=== PATIENT | male | born 1955 | race Caucasian/White ===

== ENCOUNTER 2019-05-03 21:24 | Inpatient (IN) ==
[2019-05-03] MEDS ORDERED: Morphine Sulfate 2 MG/ML SYRINGE IVP ONE (21:46)
[2019-05-03 22:00] LABS: Bilirubin,Urine Negative (Negative); Blood,Urine Negative (Negative); Clarity,Urine Clear (Clear); Color,Urine Yellow (Yellow); Glucose,Urine (UA) Normal (Normal); Ketones,Urine 40 mg/dL (Negative); Leukocyte Esterase,Urine Negative (Negative); Nitrite,Urine Negative (Negative); PH,Urine 5.5 pH Units (5.0-8.0); Protein,Urine 30 mg/dL (Neg-Trace); Specific Gravity,Urine >= 1.030 (1.010-1.025); Urobilinogen,Urine Normal (Normal)
[2019-05-03 22:06] LABS: Bacteria,Urine None Seen per hpf (None-Few); Hyaline Casts,Urine None Seen per lpf (None-Few); Squamous Epithelial Cell,Urine Many per lpf (None-Few); WBC,Urine 0-3 per hpf (0-3)
[2019-05-03 22:10] LABS: Basophils # 0.1 K/mcL (0.0-0.2); Basophils % 0.6 %; Eosinophils % 0.1 %; Hematocrit 33.2 % (37.5-50.1); Hemoglobin 11.6 g/dL (12.9-16.9); Immature Granulocytes % 0.3 % (0-4); Lymphocytes % 8.3 %; Mean Corpuscular HGB Conc 34.9 g/dL (31.6-35.5); Mean Corpuscular Hemoglobin 33.3 pg (28.0-33.3); Mean Corpuscular Volume 95.4 fL (83.0-100.0); Mean Platelet Volume 10.9 fL (9.4-12.4); Monocytes # 1.1 K/mcL (0.0-1.3); Monocytes % 8.7 %; Platelet Count 127 K/mcL (140-400); Red Blood Count 3.48 M/mcL (4.19-5.50); Red Cell Distribution Width 12.2 % (11.5-14.5); White Blood Count 12.2 K/mcL (4.3-11.1)
[2019-05-03 22:25] LABS: Alanine Aminotransferase 11 Units/L (7-52); Albumin 4.2 g/dL (3.5-5.7); Albumin/Globulin Ratio 1.8 (1.1-2.2); Alkaline Phosphatase 109 Units/L (34-104); Aspartate Amino Transferase 24 Units/L (13-39); BUN/Creatinine Ratio 25 (6-26); Bilirubin,Total 0.8 mg/dL (0.3-1.0); Blood Urea Nitrogen 15 mg/dL (8-23); Calcium 9.4 mg/dL (8.6-10.3); Carbon Dioxide 20 mEq/L (23-29); Chloride 88 mEq/L (98-107); Creatine Kinase 606 Units/L (30-223); Globulin 2.4 g/dL (2.4-3.5); Glucose 64 mg/dL (70-105); Osmolality,Calculated 259 (280-300); Potassium 4.7 mEq/L (3.5-5.1); Sodium 125 mEq/L (136-145); Total Protein 6.6 g/dL (6.4-8.9); eGFR For African Americans > 60 (> 60); eGFR For Non-African Americans > 60 (> 60)
[2019-05-03 22:31] LABS: Platelet Estimate Slight Decrease (Normal)
[2019-05-03] MEDS ORDERED: *HR* HYDROmorphone (PF) 1 MG/ML SYRINGE IVP ONE (23:14)
[2019-05-03] MEDS ORDERED: 0.9 % Sodium Chloride 1,000 ML IVC ONE (23:26)
--- NOTE | 2019-05-03 23:28 | Emergency Department Note ---
Disposition Clinical Impression: Fracture, intertrochanteric, right femur Disposition: Admitted As Inpatient Condition: Fair [facility] Care Provider[facility] - Time of Disposition: 23:30 General Adult HPI - General Chief complaint: ED Fall Stated complaint: ft leg, fall Time Seen by Provider: 05/03/19 21:28 - History of Present Illness HPI Narrative: Patient 63-year-old gentleman who presents to emergency department with chief complaint of right hip pain. Patient states that around 2:00 in the afternoon he fell when his right lower extremity gave out on him. The patient states that he did not strike his head and all his consciousness did not have neck pain afterwards. The patient states he laid on the floor until finally he was able to get assistance summoned. Patient states that he has pain whenever he attempts to move his right lower extremity particularly in the right hip. The patient states pain is worse with movement and improves with rest Pain Scale: 8 - Related Data Allergies Allergy/AdvReac Type Severity Reaction Status Date / Time No Known Allergies Allergy Verified 06/12/17 12:32 All systems ED: reviewed and negative except as stated. Past Medical History - Past Medical History Attestation: Yes The following information was validated with the patient. Medical history: Reports: COPD, hyperlipidemia, seizures, other Psychiatric history: Reports: no psych history - Social History Smoking Status: Current every day smoker Alcohol use: Reports: rarely Drug use: Reports: none Physical Exam General: Conversant and pleasant interactive and nontoxic. Head: Normocephalic/atraumatic Eyes:PERRLA, EOMI, no conjunctivitis Nares: Without d/c. Ears: No erythema or d/c noted. Oralpharnyx: P&MMM noted, Neck: Supple, no JVD or INSULATION MECHANIC noted. Cardovascular: regular rate and rhythm without murmur, brisk capillary refill, no peripheral edema. Lungs: Clear to ascultation bilaterally, non-labored Abd: Soft nontender, Non Distended, no guarding, no rebound. : Defered Extremities: He has pain in the right hip tender to palpation the patient has pain with any range of motion there is no lacerations present Neuro: AOx3, no obvious gross neuro deficit Psych: Normal Affect Derm: No rash noted - General General appearance: alert, in no apparent distress Course Course Narrative: Placement pain plain film x-rays obtained of the right hip that showed evidence of a fracture. The case was discussed with with Orthopedics the paten will be admitted to the hospitalist service will be Vital Signs Temperature 98.0 F 05/03/19 21:27 Pulse Rate 97 05/03/19 21:27 Respiratory Rate 17 05/03/19 21:27 Blood Pressure 134/73 05/03/19 21:27 O2 Sat by Pulse Oximetry 100 05/03/19 21:27 Temperature 98.0 F 05/03/19 21:27 Pulse Rate 97 05/03/19 21:27 Respiratory Rate 17 05/03/19 21:27 Blood Pressure 134/73 05/03/19 21:27 O2 Sat by Pulse Oximetry 100 05/03/19 21:38 Oxygen Delivery Oxygen Delivery Room Air Medical Decision Making - Lab Data Result diagrams: 05/03/19 21:46 05/03/19 21:46 Lab Results 05/03/19 05/03/19 05/03/19 Range/Units 21:46 21:46 21:53 WBC 12.2 H (4.3-11.1) K/mcL RBC 3.48 L (4.19-5.50) M/mcL Hgb 11.6 L (12.9-16.9) g/dL Hct 33.2 L (37.5-50.1) % MCV 95.4 (83.0-100.0) fL MCH 33.3 (28.0-33.3) pg MCHC 34.9 (31.6-35.5) g/dL RDW 12.2 (11.5-14.5) % Plt Count 127 L (140-400) K/mcL MPV 10.9 (9.4-12.4) fL Immature Gran % 0.3 (0-4) % Seg Neutrophils % 82.0 % Lymphocytes % 8.3 % Monocytes % 8.7 % Eosinophils % 0.1 % Basophils % 0.6 % Neutrophils # 10.0 H (1.6-8.9) K/mcL Lymphocytes # 1.0 (0.6-4.6) K/mcL Monocytes # 1.1 (0.0-1.3) K/mcL Eosinophils # 0.0 (0.0-0.6) K/mcL Basophils # 0.1 (0.0-0.2) K/mcL Platelet Estimate Slight Decrease L (Normal) Sodium 125 L (136-145) mEq/L Potassium 4.7 (3.5-5.1) mEq/L Chloride 88 L (98-107) mEq/L Carbon Dioxide 20 L (23-29) mEq/L BUN 15 (8-23) mg/dL Creatinine 0.59 L (0.70-1.30) mg/dL Est GFR ( Amer) > 60 (> 60) Est GFR (Non-Af Amer) > 60 (> 60) BUN/Creatinine Ratio 25 (6-26) Glucose 64 L (70-105) mg/dL Calculated Osmolality 259 L (280-300) Calcium 9.4 (8.6-10.3) mg/dL Total Bilirubin 0.8 (0.3-1.0) mg/dL AST 24 (13-39) Units/L ALT 11 (7-52) Units/L Alkaline Phosphatase 109 H (34-104) Units/L Creatine Kinase 606 H (30-223) Units/L Serum Total Protein 6.6 (6.4-8.9) g/dL Albumin 4.2 (3.5-5.7) g/dL Globulin 2.4 (2.4-3.5) g/dL Albumin/Globulin Ratio 1.8 (1.1-2.2) Urine Color Yellow (Yellow) Urine Clarity Clear (Clear) Urine pH 5.5 (5.0-8.0) pH Units Ur Specific [place] >= 1.030 H (1.010-1.025) Urine Protein 30 H (Neg-Trace) mg/dL Urine Glucose (UA) Normal (Normal) mg/dL Urine Ketones 40 H (Negative) mg/dL Urine Blood Negative (Negative) Urine Nitrite Negative (Negative) Urine Bilirubin Negative (Negative) Urine Urobilinogen Normal (Normal) mg/dL Ur Leukocyte Esterase Negative (Negative) Urine Microscopic RBC 5-15 H (0-3) per hpf Urine Microscopic WBC 0-3 (0-3) per hpf Ur Squamous Epith Cells Many H (None-Few) per lpf Urine Bacteria None Seen (None-Few) per hpf Hyaline Casts None Seen (None-Few) per lpf Ur Culture Indicated? NO (NO)
[2019-05-03] MEDS ORDERED: D5% in 0.45% NACL 1,000 ML IVC SCH (23:45)
--- NOTE | 2019-05-03 23:56 | Internal Med History&Physical ---
Date of Encounter: 05/03/19 Time of Encounter: 23:55 Internal Medicine - H&P: HPI Chief complaint: Fall/Hip Fx History of present illness: Mr. Reis is a 63 year old male with a past medical history of non-O2 dependent COPD, hypertension, seizure disorder who presented to the ED due to complaints of right hip pain in the setting of a reported mechanical fall earlier today around 2 PM this afternoon when the patient stated that his right lower extremity gave out. Patient is not currently on any blood thinners and denies any loss of consciousness or head trauma. Patient was on the floor for until he was finally able to get assistance. Since then his reported increased pain with movement of his right lower extremity. Imaging of the right hip revealed a comminuted intertrochanteric fracture. Vitals on arrival otherwise were stable. Laboratory workup notable for a mild leukocytosis of 12.2, anemia of 11.6, hyponatremia with a sodium of 125, elevated creatinine kinase of over 600 and mild hypoglycemia with a blood glucose of 64. Patient denies any dif ficulty breathing, fever, chills, chest pain, shortness of breath, recent seizures, lower extremity swelling or GI symptoms. Case discussed with Dr. Aburto who will evaluate the patient in the morning. Past Med Surg Social Fam HX - Past Medical History Medical history: COPD, hyperlipidemia, seizures, other Additional medical history: natalia's Psychiatric history: no psych history - Past Surgical History Additional surgical history: cystectomy from neck, diverticulitis - Social History Smoking Status: Current every day smoker Alcohol use: rarely Drug use: none Internal Medicine - H&P: Meds Budesonide/Formoterol 160/4.5 [Symbicort 160/4.5] 2 puff IH BIDR 05/04/19 [History] Cholecalciferol (D-3) [Vitamin D] 2,000 unit PO DAILY 05/04/19 [History] Ipratropium/Albuterol Sulfate [Combivent Respimat Inhal [place]] 1 puff IH QID PRN 05/04/19 [History] Loratadine [Claritin] 10 mg PO DAILY 05/04/19 [History] Phenytoin ER [Dilantin ER] 200 mg PO HS 05/04/19 [History] Phenytoin ER [Dilantin ER] 300 mg PO QAM 05/04/19 [History] amLODIPine [Norvasc] 5 mg PO DAILY 05/04/19 [History] Allergy/AdvReac Type Severity Reaction Status Date / Time No Known Allergies Allergy Verified 06/12/17 12:32 All Systems PM: A 10-system review of systems was performed and is negative for pertinent findings except as documented above in the HPI. - Constitutional Constitutional: no chills, no fever(s), no night sweats - EENT Eyes: no change in vision, no discharge, no pain, no photophobia Ears: no ear discharge, no ear pain, no tinnitus Nose, mouth and throat: no dysphagia, no nasal discharge, no neck pain, no sore throat - Cardiovascular Cardiovascular ROS IM: no chest pain, no diaphoresis, no dyspnea, no lightheadedness, no palpitations, no syncope - Respiratory Respiratory: no cough, no dyspnea, no wheezing, no excessive phlegm production - Gastrointestinal Gastrointestinal: no abdominal pain, no diarrhea, no hematemesis, no hematochezia, no melena, no nausea, no vomiting - Musculoskeletal Musculoskeletal ROS IM: no numbness, no tingling - Integumentary Integumentary IM: no rash, no unusual bruising - Neurological Neurological ROS: no confusion, no convulsions, no focal weakness, no numbness, no tingling, no tremor(s) - Hematologic/Lymphatic Hematologic/Lymphatic: no easy bruising - Constitutional Vitals: Temp Pulse Resp BP Pulse Ox 98.0 F 97 17 134/73 100 05/03/19 21:27 05/03/19 21:27 05/03/19 21:27 05/03/19 21:05/03/19 21:38 Exam: General: Alert and oriented Skin:Normal color, no rash, no lesions. HEENT:EOM, pupils equal, round and reactive. Cardiovascular:Normal S1 & S2, no rubs, murmurs or gallops. No JVD. Pulse regular. Lungs:Normal breath sounds, no wheezes or crackles. Abdomen:Soft, non-tender, no rigidity. Extremities:No deformity, no edema or tenderness, no joint swelling or clubbing. Neurological:Normal cognition and motor skills. Pulses:Carotid and radial pulses normal +2. Rest of the physical exam is non contributory Internal Med - H&P Results - Labs CBC & Chem 7: 05/04/19 02:27 05/04/19 02:27 Labs: Short CBC 05/03/19 Range/Units 21:46 WBC 12.2 H (4.3-11.1) K/mcL Hgb 11.6 L (12.9-16.9) g/dL Hct 33.2 L (37.5-50.1) % Plt Count 127 L (140-400) K/mcL Neutrophils # 10.0 H (1.6-8.9) K/mcL BMP 05/03/19 21:46 Sodium 125 L Potassium 4.7 Chloride 88 L Carbon Dioxide 20 L BUN 15 Creatinine 0.59 L Glucose 64 L Calcium 9.4 Liver Function 05/03/19 Range/Units 21:46 Total Bilirubin 0.8 (0.3-1.0) mg/dL AST 24 (13-39) Units/L ALT 11 (7-52) Units/L Alkaline Phosphatase 109 H (34-104) Units/L Albumin 4.2 (3.5-5.7) g/dL Urine 05/03/19 Range/Units 21:53 Urine Color Yellow (Yellow) Urine Clarity Clear (Clear) Urine pH 5.5 (5.0-8.0) pH Units Ur Specific [place] >= 1.030 H (1.010-1.025) Urine Protein 30 H (Neg-Trace) mg/dL Urine Glucose (UA) Normal (Normal) mg/dL - Impressions ITS Impressions Hip X-Ray 05/03/19 23:10 IMPRESSION: Pelvis: Comminuted intertrochanteric right hip fracture. Right knee: Examination is nearly nondiagnostic secondary to nonstandard positioning. No obvious acute abnormality. Consider repeat imaging patient is able to tolerate. D/ / Tj Zavala MD / Tj Zavala MD Interpreting Provider: Tj Zavala MD Knee X-Ray 05/03/19 23:10 IMPRESSION: Pelvis: Comminuted intertrochanteric right hip fracture. Right knee: Examination is nearly nondiagnostic secondary to nonstandard positioning. No obvious acute abnormality. Consider repeat imaging patient is able to tolerate. D/ / Tj Zavala MD / Tj Zavala MD Interpreting Provider: Tj Zavala MD - Assessment and Plan (1) Fracture, intertrochanteric, right femur Current Visit: Yes Status: Acute Assessment and plan: 63-year-old male with a past medical history of COPD, hyperlipidemia, and seizure disorder presenting with right hip pain following fall after right lower extremity gave out. X-ray of the right hip showing a comminuted intertrochanteric right hip fracture. Case discussed with Dr. Aburto. -Supportive care with fluids and pain control -Duoneb as needed given COPD Hx -Will obtain EKG/ECHO for preop eval. -DVT prophylaxis Qualifiers: Encounter type: initial encounter Qualified Code(s): S72.141A - Displaced intertrochanteric fracture of right femur, initial encounter for closed fracture (2) Hyponatremia Current Visit: Yes Status: Acute Assessment and plan: Patient presenting with a sodium of 125. Calculated osmolality 259. Possibly secondary to dehydration versus decreased solid intake. Kidney function otherwise appears to be stable. Patient appears to be neurologically intact. -We will start patient on D5 normal saline at 75 mL an hour (due to concomitant mild hypoglycemia) -Sodium checks every 2 hours -We will check urine sodium and urine osmolality for further assessment of hypon atremia (3) Elevated creatine kinase level Current Visit: Yes Status: Acute Assessment and plan: Elevated creatinine kinase of 606 likely secondary to prolonged immobility after fall. As noted above, no evidence of acute kidney injury. -Continue fluid hydration as above. -Trend creatinine kinase to ensure levels are not rising. (4) Anemia Current Visit: Yes Status: Acute Assessment and plan: Hemoglobin of 11.6. Normocytic. Most recent hemoglobin was 14.1 in November 2016. No evidence of hematoma at this time. Unclear if this is chronic or acute. -We will trend H&H and monitor for signs of bleeding. Qualifiers: Qualified Code(s): D64.9 - Anemia, unspecified (5) Hypoglycemia Current Visit: Yes Status: Acute Assessment and plan: Blood sugar found to be 64 on arrival. No history of diabetes. Suspect likely secondary to decreased PO intake after patient was down several hours before receiving aid. -Start patient on D5 normal saline and monitor blood sugars closely (6) COPD (chronic obstructive pulmonary disease) Current Visit: Yes Status: Acute Assessment and plan: No evidence of acute exacerbation. -Resume home inhalers Qualifiers: COPD type: unspecified COPD Qualified Code(s): J44.9 - Chronic obstructive pulmonary disease, unspecified (7) Hypertension Current Visit: Yes Status: Acute Qualifiers: Hypertension type: essential hypertension Qualified Code(s): I10 - Essential (primary) hypertension (8) DVT prophylaxis Current Visit: Yes Status: Acute Assessment and plan: Intermittent pneumatic compression devices - Time Spent With Patient Total time spent is greater than 50% in coordination of care (as documented) at patient's floor/unit and/or counseling patient:
[2019-05-03] MEDS ORDERED: Ondansetron 4 MG/2 ML VIAL IVP PRN (23:58)
[2019-05-03] MEDS ORDERED: Naloxone 0.4 MG/ML INJ IVP PRN (23:58)
[2019-05-04] MEDS ORDERED: Ipratropium/Albuterol Neb 3 ML IH PRN (00:14)
[2019-05-04] MEDS ORDERED: D5% in 0.9% NACL 1,000 ML IVC SCH (00:30)
[2019-05-04] MEDS ORDERED: *HR* Dextrose 50 % in Water (Syg) 50 ML SYRINGE IVP PRN (01:37)
[2019-05-04] MEDS ORDERED: Dextrose Gel 15 GM/37.5 ML TUBE PO PRN ×2 (01:37)
[2019-05-04] MEDS ORDERED: D5% in Water 1,000 ML IVC PRN (01:37)
[2019-05-04 02:45] LABS: Prothrombin Time 11.2 Seconds (9.4-12.1)
[2019-05-04 02:47] LABS: Hematocrit 29.9 % (37.5-50.1); Hemoglobin 10.6 g/dL (12.9-16.9); Mean Corpuscular HGB Conc 35.5 g/dL (31.6-35.5); Mean Corpuscular Volume 95.8 fL (83.0-100.0); Mean Platelet Volume 10.1 fL (9.4-12.4); Platelet Count 211 K/mcL (140-400); Red Blood Count 3.12 M/mcL (4.19-5.50); Red Cell Distribution Width 12.3 % (11.5-14.5)
[2019-05-04 02:48] LABS: Activated Partial Thrombo Time 27.9 Seconds (26.0-36.0)
[2019-05-04 02:53] LABS: Alanine Aminotransferase 12 Units/L (7-52); Albumin 3.6 g/dL (3.5-5.7); Albumin/Globulin Ratio 1.6 (1.1-2.2); Alkaline Phosphatase 96 Units/L (34-104); Aspartate Amino Transferase 35 Units/L (13-39); BUN/Creatinine Ratio 24 (6-26); Bilirubin,Total 0.7 mg/dL (0.3-1.0); Blood Urea Nitrogen 14 mg/dL (8-23); Calcium 8.1 mg/dL (8.6-10.3); Carbon Dioxide 13 mEq/L (23-29); Chloride 92 mEq/L (98-107); Creatine Kinase 1433 Units/L (30-223); Globulin 2.2 g/dL (2.4-3.5); Glucose 66 mg/dL (70-105); Magnesium 1.5 mg/dL (1.6-2.6); Osmolality,Calculated 257 (280-300); Potassium 4.2 mEq/L (3.5-5.1); Sodium 124 mEq/L (136-145); Total Protein 5.8 g/dL (6.4-8.9); eGFR For African Americans > 60 (> 60); eGFR For Non-African Americans > 60 (> 60)
[2019-05-04] MEDS: 0.9 % Sodium Chloride 1,000 ML IVC SCH (04:05)
--- NOTE | 2019-05-04 06:25 | Orthopedics Progress Note ---
Date of Encounter: 05/04/19 Time of Encounter: 06:24 Subjective Interval history: Patient seen today, status post fall, injury to right hip. Right lower extremity Neurovascular intact Decreased range of motion secondary to pain X-rays displaced right intertrochanteric hip fracture. Plan for open reduction intramedullary nail fixation. Surgery tomorrow. We reviewed the risks and benefits as well as recovery. All questions were answered. The patient agreed to this treatment plan and acknowledged an understanding of the treatment plan as described. Objective Vital signs: Vital Signs Temp Pulse Resp BP Pulse Ox 05/04/19 02:43 98.3 F 93 18 105/64 99 05/04/19 01:17 98.2 F 92 20 120/69 100 05/04/19 00:55 16 118/62 05/03/19 23:58 88 18 109/75 100 05/03/19 21:38 100 05/03/19 21:27 98.0 F 97 17 134/73 100 Intake and Output 05/03/19 05/03/19 05/04/19 15:59 23:59 07:59 Intake Total 0 / 0 Output Total 0 / 0 Balance 0 / 0 Intake: Oral 0 / 0 Output: Urine 0 / 0 Other: Weight 68.583 kg 69 kg Blood Glucose* 96 Patient Weight 05/04/19 23:59 Weight 69 kg - Labs CBC & BMP: 05/04/19 02:27 05/04/19 02:27 Labs: Abnormal lab results WBC 12.2 K/mcL (4.3-11.1) H 05/03/19 21:46 RBC 3.12 M/mcL (4.19-5.50) L 05/04/19 02:27 Hgb 10.6 g/dL (12.9-16.9) L 05/04/19 02:27 Hct 29.9 % (37.5-50.1) L 05/04/19 02:27 MCH 34.0 pg (28.0-33.3) H 05/04/19 02:27 Plt Count 127 K/mcL (140-400) L 05/03/19 21:46 Neutrophils # 10.0 K/mcL (1.6-8.9) H 05/03/19 21:46 Platelet Estimate Slight Decrease (Normal) L 05/03/19 21:46 Sodium 124 mEq/L (136-145) L 05/04/19 02:27 Chloride 92 mEq/L (98-107) L 05/04/19 02:27 Carbon Dioxide 13 mEq/L (23-29) L 05/04/19 02:27 Creatinine 0.58 mg/dL (0.70-1.30) L 05/04/19 02:27 Glucose 66 mg/dL (70-105) L 05/04/19 02:27 POC Glucose 52 mg/dL (70-99) L 05/04/19 01:18 Calculated Osmolality 257 (280-300) L 05/04/19 02:27 Calcium 8.1 mg/dL (8.6-10.3) L 05/04/19 02:27 Magnesium 1.5 mg/dL (1.6-2.6) L 05/04/19 02:27 Alkaline Phosphatase 109 Units/L (34-104) H 05/03/19 21:46 Creatine Kinase 1306 Units/L (30-223) H 05/04/19 05:20 B-Natriuretic Peptide 108 pg/mL (Less than 100) H 05/04/19 02:27 Serum Total Protein 5.8 g/dL (6.4-8.9) L 05/04/19 02:27 Globulin 2.2 g/dL (2.4-3.5) L 05/04/19 02:27 Ur Specific [place] >= 1.030 (1.010-1.025) H 05/03/19 21:53 Urine Protein 30 mg/dL (Neg-Trace) H 05/03/19 21:53 Urine Ketones 40 mg/dL (Negative) H 05/03/19 21:53 Urine Microscopic RBC 5-15 per hpf (0-3) H 05/03/19 21:53 Ur Squamous Epith Cells Many per lpf (None-Few) H 05/03/19 21:53 Consult Discharge Plan - Plan [facility]errals: [facility] [Primary Care Provider[facility] -
[2019-05-04] MEDS ORDERED: Perflutren Lipid Microsphere 1.3 ML in 0.9 % Sodium Chloride 8.7 ML IVP ONE (08:11)
--- NOTE | 2019-05-04 08:48 | Internal Med Progress Note ---
<Boubacar Jo - Last Filed: 05/04/19 14:55> Hospitalist Progress Note - Encounter Date of Encounter: 05/04/19 - Exam Vitals: Temp Pulse Resp BP Pulse Ox 98.6 F 105 16 104/55 93 05/04/19 11:08 05/04/19 11:08 05/04/19 11:08 05/04/19 11:08 05/04/19 11:08 - Assessment and Plan (1) Fracture, intertrochanteric, right femur Current Visit: Yes Status: Acute (2) Hyponatremia Current Visit: Yes Status: Acute (3) Elevated creatine kinase level Current Visit: Yes Status: Acute (4) Anemia Current Visit: Yes Status: Suspected (5) Hypoglycemia Current Visit: Yes Status: Acute (6) COPD (chronic obstructive pulmonary disease) Current Visit: Yes Status: Acute (7) Hypertension Current Visit: Yes Status: Acute (8) DVT prophylaxis Current Visit: Yes Status: Acute - Time Spent with Patient Total time spent is greater than 50% in coordination of care (as documented) at patient's floor/unit and/or counseling patient: Internal Medicine: Result - Labs CBC & Chem 7: 05/04/19 02:27 05/04/19 11:53 Labs: Short CBC 05/03/19 05/04/19 Range/Units 21:46 02:27 WBC 12.2 H 11.0 (4.3-11.1) K/mcL Hgb 11.6 L 10.6 L (12.9-16.9) g/dL Hct 33.2 L 29.9 L (37.5-50.1) % Plt Count 127 L 211 D (140-400) K/mcL Neutrophils # 10.0 H (1.6-8.9) K/mcL BMP 05/03/19 05/04/19 05/04/19 21:46 02:27 10:35 Sodium 125 L 124 L 126 L Potassium 4.7 4.2 Chloride 88 L 92 L Carbon Dioxide 20 L 13 L BUN 15 14 Creatinine 0.59 L 0.58 L Glucose 64 L 66 L Calcium 9.4 8.1 L 05/04/19 11:53 Sodium 125 L Potassium Chloride Carbon Dioxide BUN Creatinine Glucose Calcium Liver Function 05/03/19 05/04/19 Range/Units 21:46 02:27 Total Bilirubin 0.8 0.7 (0.3-1.0) mg/dL AST 24 35 (13-39) Units/L ALT 11 12 (7-52) Units/L Alkaline Phosphatase 109 H 96 (34-104) Units/L Albumin 4.2 3.6 (3.5-5.7) g/dL Urine 05/03/19 Range/Units 21:53 Urine Color Yellow (Yellow) Urine Clarity Clear (Clear) Urine pH 5.5 (5.0-8.0) pH Units Ur Specific [place] >= 1.030 H (1.010-1.025) Urine Protein 30 H (Neg-Trace) mg/dL Urine Glucose (UA) Normal (Normal) mg/dL - ABG Interpretation ABG results: PT/INR, D-dimer PT 11.2 Seconds (9.4-12.1) 05/04/19 02:27 - Impressions Impressions Hip X-Ray 05/03/19 23:10 IMPRESSION: Pelvis: Comminuted intertrochanteric right hip fracture. Right knee: Examination is nearly nondiagnostic secondary to nonstandard positioning. No obvious acute abnormality. Consider repeat imaging patient is able to tolerate. D/ / Tj Zavala MD / Tj Zavala MD Interpreting Provider: Tj Zavala MD Knee X-Ray 05/03/19 23:10 IMPRESSION: Pelvis: Comminuted intertrochanteric right hip fracture. Right knee: Examination is nearly nondiagnostic secondary to nonstandard positioning. No obvious acute abnormality. Consider repeat imaging patient is able to tolerate. D/ / Tj Zavala MD / Tj Zavala MD Interpreting Provider: Tj Zavala MD Echocardiogram 05/04/19 08:27 Impressions: LVEF 65%. Mild left ventricular diastolic dysfunction. Definity echo contrast was used. Normal right ventricular structure and function. Mild tricuspid regurgitation. Borderline pulmonary hypertension. Left Ventricular Wall Motion: Rest Echo Findings All wall segments showed normal motion. Findings: Study Quality * Technically adequate exam. ECG Findings * Normal sinus rhythm. Left Ventricle * LVEF 65%. * Mild left ventricular diastolic dysfunction. * Definity echo contrast was used. * Normal LV chamber size, wall thickness and function. Right Ventricle * Normal right ventricular structure and function. Left Atrium * Normal left atrial size. Right Atrium * Normal right atrial size. Aortic Valve * No aortic regurgitation. * Trileaflet aortic valve. * Thickening of the NCC. * No aortic stenosis. Mitral Valve * No mitral regurgitation. * Mitral valve not well visualized. * No mitral stenosis. Tricuspid Valve * Normal tricuspid valve structure. * Mild tricuspid regurgitation. * Estimated RA pressure is 3 mmHg. * Estimated RVSP is 34 mmHg. * Borderline pulmonary hypertension. Pulmonic Valve * Pulmonic valve is not well visualized. * No pulmonic stenosis. * No pulmonic regurgitation. Pulmonary Artery * Normally sized aortic root for BSA. Aorta * Normally sized aortic root. Pericardium * There is no pericardial effusion present. Interatrial Septum * No evidence of PFO by color Doppler. IVC * Normal IVC dimensions and inspiratory collapse. Consult Discharge Plan - Plan [facility]errals: [facility]Primary Care Provider[facility] - - Attending Attestation I examined this patient and my medical decision-making was reviewed with the Resident Physician on 05/04/19. I agree with the documented findings, disposition and treatment plan as described except to the extent set forth below. Mr Reis is currently admitted for hip fracture and hyponatremia. He remains moderate to high risk due to potential for worsening clinical status. Mr Reis is alert and interactive. Pain controlled. No fever or chills. No CP or SOB. Exam: Alert. Comfortable now. NC. EOMI. Mucus membranes dry. Neck supple. Heart reg and distant. No wheeze. Abd soft and nontender. No rash. Pulses palpable. No edema. Serum sodium 125. Serum osm - 257(calc) Urine osm 587 Urine sodium 40 I/P 1. Hip fracture - ortho surgery tomorrow. 2. 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 Issue is that with elevated CPK we cannot fluid restrict and he needs to have IV fluids. Salt tabs started. Follow sodium. Check TSH and random cortisol. Further diagnoses and plan as above. <Andre Bai - Last Filed: 09/17/19 16:28> Hospitalist Progress Note - Encounter Date of Encounter: 05/04/19 Time of Encounter: 08:48 - Subjective Interval History: Patient admitted yesterday for right intertrochanteric femur fracture. Orth opedic surgery planning fixation tomorrow. No acute events overnight, no acute complaints this morning. - Exam Vitals: Temp Pulse Resp BP Pulse Ox 98.6 F 93 18 107/57 93 05/04/19 06:43 05/04/19 06:43 05/04/19 06:43 05/04/19 06:43 05/04/19 06:43 Exam: General: Alert and oriented Skin:Normal color, no rash, no lesions. HEENT:EOM, pupils equal, round and reactive. Cardiovascular:Normal S1 & S2, no rubs, murmurs or gallops. No JVD. Pulse regular. Lungs:Normal breath sounds, no wheezes or crackles. Abdomen:Soft, non-tender, no rigidity. Extremities: Right lower extremity in external rotation, motor and sensation intact in distal bilateral lower extremities Neurological: No focal deficits noted Pulses:Carotid and radial pulses normal +2. Rest of the physical exam is non contributory - Assessment and Plan (1) Fracture, intertrochanteric, right femur Current Visit: Yes Status: Acute Assessment and Plan: Right intertrochanteric femur fracture secondary to mechanical fall Orthopedic surgery planning fixation tomorrow Oxycodone for pain control (2) Hyponatremia Current Visit: Yes Status: Acute Assessment and Plan: Patient presented with hyponatremia of 124 Hypotonic euvolemic hyponatremia, serial sodiums of 126, 125 There is concern for SIADH, cortisol and TSH pending We are supplementing normal saline and oral sodium chloride We will continue to monitor and supplement as necessary (3) Elevated creatine kinase level Current Visit: Yes Status: Acute Assessment and Plan: Creatine kinase elevated on admission, likely secondary to downtime from femur fracture Renal function remains stable, we will continue to supplement fluids (4) Anemia Current Visit: Yes Status: Acute Assessment and Plan: Patient presented with mild normocytic anemia of unknown etiology Currently stable at 10.6, we will continue to monitor (5) Hypoglycemia Current Visit: Yes Status: Acute Assessment and Plan: Patient admitted with hypoglycemia of 64, repeat 66 today [id number] glucose is normal at 96, 104 throughout the day Every 6 hour Accu-Cheks ordered and when necessary dextrose in place (6) COPD (chronic obstructive pulmonary disease) Current Visit: Yes Status: Chronic Assessment and Plan: History of COPD with home Combivent and Symbicort Currently stable without signs of exacerbation (7) DVT prophylaxis Current Visit: Yes Status: Acute Assessment and Plan: Sequential compression devices (8) Hypertension Current Visit: Yes Status: Acute Assessment and Plan: Home Norvasc continued (9) Diastolic heart failure with preserved ejection fraction Current Visit: Yes Status: Chronic Assessment and Plan: Echocardiogram performed for surgical clearance Mild diastolic dysfunction with preserved ejection fraction of 65% identified - Time Spent with Patient Total time spent is greater than 50% in coordination of care (as documented) at patient's floor/unit and/or counseling patient: Internal Medicine: Result - Labs CBC & Chem 7: 05/04/19 02:27 05/04/19 11:53 Labs: Short CBC 05/03/19 05/04/19 Range/Units 21:46 02:27 WBC 12.2 H 11.0 (4.3-11.1) K/mcL Hgb 11.6 L 10.6 L (12.9-16.9) g/dL Hct 33.2 L 29.9 L (37.5-50.1) % Plt Count 127 L 211 D (140-400) K/mcL Neutrophils # 10.0 H (1.6-8.9) K/mcL BMP 05/03/19 05/04/19 21:46 02:27 Sodium 125 L 124 L Potassium 4.7 4.2 Chloride 88 L 92 L Carbon Dioxide 20 L 13 L BUN 15 14 Creatinine 0.59 L 0.58 L Glucose 64 L 66 L Calcium 9.4 8.1 L Liver Function 05/03/19 05/04/19 Range/Units 21:46 02:27 Total Bilirubin 0.8 0.7 (0.3-1.0) mg/dL AST 24 35 (13-39) Units/L ALT 11 12 (7-52) Units/L Alkaline Phosphatase 109 H 96 (34-104) Units/L Albumin 4.2 3.6 (3.5-5.7) g/dL Urine 05/03/19 Range/Units 21:53 Urine Color Yellow (Yellow) Urine Clarity Clear (Clear) Urine pH 5.5 (5.0-8.0) pH Units Ur Specific [place] >= 1.030 H (1.010-1.025) Urine Protein 30 H (Neg-Trace) mg/dL Urine Glucose (UA) Normal (Normal) mg/dL - ABG Interpretation ABG results: PT/INR, D-dimer PT 11.2 Seconds (9.4-12.1) 05/04/19 02:27 - Impressions Impressions Hip X-Ray 05/03/19 23:10 IMPRESSION: Pelvis: Comminuted intertrochanteric right hip fracture. Right knee: Examination is nearly nondiagnostic secondary to nonstandard positioning. No obvious acute abnormality. Consider repeat imaging patient is able to tolerate. D/ / Tj Zavala MD / Tj Zavala MD Interpreting Provider: Tj Zavala MD Knee X-Ray 05/03/19 23:10 IMPRESSION: Pelvis: Comminuted intertrochanteric right hip fracture. Right knee: Examination is nearly nondiagnostic secondary to nonstandard positioning. No obvious acute abnormality. Consider repeat imaging patient is able to tolerate. D/ / Tj Zavala MD / Tj Zavala MD Interpreting Provider: Tj Zavala MD <Boubacar Jo - Last Filed: 05/04/19 14:55> (1) Fracture, intertrochanteric, right femur Qualifiers: Encounter type: subsequent encounter Fracture type: closed Fracture alignment: nondisplaced Fracture healing: with routine healing Qualified Code(s): S72.144D - Nondisplaced intertrochanteric fracture of right femur, subsequent encounter for closed fracture with routine healing (4) Anemia Qualifiers: Anemia type: other cause Other causes of anemia: acute posthemorrhagic Qualified Code(s): D62 - Acute posthemorrhagic anemia (6) COPD (chronic obstructive pulmonary disease) Qualifiers: COPD type: unspecified COPD Qualified Code(s): J44.9 - Chronic obstructive pulmonary disease, unspecified (7) Hypertension Qualifiers: Hypertension type: essential hypertension Qualified Code(s): I10 - Essential (primary) hypertension <Andre Bai - Last Filed: 05/04/19 16:28> (1) Fracture, intertrochanteric, right femur Qualifiers: Encounter type: subsequent encounter Fracture type: closed Fracture alignment: nondisplaced Fracture healing: with routine healing Qualified Code(s): S72.144D - Nondisplaced intertrochanteric fracture of right femur, subsequent encounter for closed fracture with routine healing (4) Anemia Qualifiers: Anemia type: other cause Other causes of anemia: acute posthemorrhagic Qualified Code(s): D62 - Acute posthemorrhagic anemia (6) COPD (chronic obstructive pulmonary disease) Qualifiers: COPD type: unspecified COPD Qualified Code(s): J44.9 - Chronic obstructive pulmonary disease, unspecified (8) Hypertension Qualifiers: Hypertension type: essential hypertension Qualified Code(s): I10 - Essential (primary) hypertension
[2019-05-04] MEDS: amLODIPine 5 MG TABLET PO SCH (09:20)
[2019-05-04] MEDS: Cholecalciferol (D-3) 1,000 UNIT (25MCG) TABLET PO SCH ×2 (09:21→20:10)
[2019-05-04] MEDS: Loratadine 10 MG TABLET PO SCH (09:21)
[2019-05-05] MEDS: 0.9 % Sodium Chloride 1,000 ML IVC SCH ×2 (03:53→23:36)
[2019-05-05 07:21] LABS: BUN/Creatinine Ratio 17 (6-26); Blood Urea Nitrogen 12 mg/dL (8-23); Calcium 8.5 mg/dL (8.6-10.3); Carbon Dioxide 23 mEq/L (23-29); Chloride 97 mEq/L (98-107); Glucose 113 mg/dL (70-105); Osmolality,Calculated 269 (280-300); Potassium 3.7 mEq/L (3.5-5.1); Sodium 129 mEq/L (136-145); eGFR For African Americans > 60 (> 60); eGFR For Non-African Americans > 60 (> 60)
[2019-05-05 07:32] LABS: Thyroid Stimulating Hormone 2.701 mcIU/mL (0.340-5.600)
[2019-05-05 08:02] LABS: Basophils % 0.5 %; Eosinophils % 0.2 %; Hematocrit 24.9 % (37.5-50.1); Hemoglobin 8.7 g/dL (12.9-16.9); Immature Granulocytes % 0.4 % (0-4); Lymphocytes # 1.2 K/mcL (0.6-4.6); Lymphocytes % 14.5 %; Mean Corpuscular HGB Conc 34.9 g/dL (31.6-35.5); Mean Corpuscular Hemoglobin 34.5 pg (28.0-33.3); Mean Corpuscular Volume 98.8 fL (83.0-100.0); Mean Platelet Volume 9.7 fL (9.4-12.4); Monocytes % 11.8 %; Neutrophils # 5.8 K/mcL (1.6-8.9); Platelet Count 144 K/mcL (140-400); Red Blood Count 2.52 M/mcL (4.19-5.50); Red Cell Distribution Width 12.6 % (11.5-14.5); Segmented Neutrophils % 72.6 %; White Blood Count 8.1 K/mcL (4.3-11.1)
[2019-05-05 08:19] LABS: Sodium 129 mEq/L (136-145)
--- NOTE | 2019-05-05 08:53 | Anesthesia Evaluation PreOp ---
Date of Encounter: 05/05/19 Time of Encounter: 10:35 - Past History Planned Operation: Right Hip Trochanteric Fixation Nail Cardiac History: HTN, Hyperlipidemia Pulmonary History: Smoker (46 years), COPD [employer] History: Seizures (last seizure in 2012, well controlled on medication) Other Medical History: Other (Raynauds, hyponatremia) Anesthesia History: No Prior Anesthetic Complications, Past Anesthesia Alcohol Use: rarely Drug use: none Medications and Allergies Budesonide/Formoterol 160/4.5 [Symbicort 160/4.5] 2 puff IH BIDR 05/04/19 [History] Cholecalciferol (D-3) [Vitamin D] 2,000 unit PO DAILY 05/04/19 [History] Ipratropium/Albuterol Sulfate [Combivent Respimat Inhal Powell] 1 puff IH QID PRN 05/04/19 [History] Loratadine [Claritin] 10 mg PO DAILY 05/04/19 [History] Phenytoin ER [Dilantin ER] 200 mg PO HS 05/04/19 [History] Phenytoin ER [Dilantin ER] 300 mg PO QAM 05/04/19 [History] amLODIPine [Norvasc] 5 mg PO DAILY 05/04/19 [History] 3 Allergy/AdvReac Type Severity Reaction Status Date / Time No Known Allergies Allergy Verified 06/12/17 12:32 - Meds/Allergy Pre-op Review Medications Reviewed: Yes Allergies Reviewed: Yes Beta Blockers on Current Med List: No Anesthesia Results - Labs 05/05/19 07:33 05/05/19 07:33 - Imaging EKG: report reviewed (05/05/2019 sinus rhythm, non-specific ST abnormality) Additional studies: 05/04/2019 Echo Impressions: LVEF 65%. Mild left ventricular diastolic dysfunction. Definity echo contrast was used. Normal right ventricular structure and function. Mild tricuspid regurgitation. Borderline pulmonary hypertension. Anesthesia Exam Vital Signs/O2 Sat, Most Current Temp Pulse Resp BP Pulse Ox 98.7 F 84 16 105/64 93 05/05/19 06:44 05/05/19 06:44 05/05/19 06:44 05/05/19 06:44 05/05/19 06:44 Height: 5'10"/1.78m Weight: 152 lbs/69.2 kg NPO (# of Hours): 8 Pain Scale: 6 (right hip) Pain Scale Used: Numeric (1 - 10) - HEENT Pupil (Motor): EOMI Mallampati: II Teeth: Edentulous Denture Type: Upper: Complete, Lower: Complete Oral Opening: Greater than 3 - [employer] LOC: Oriented [employer] Motor: Normal RUE, Normal LUE, Normal RLE, Normal LLE, Normal Face [employer] Sensory: Normal: RUE, LUE, RLE, LLE, Face - Cardiac Rhythm: Regular Murmur: None - Pulmonary Breath Sounds: bilateral Clear Respiratory Effort: Symmetrical Anesthesia Assess/Plan ASA Score: 3 Level of consciousness: Cooperative, Oriented, Tranquil Anesthetic Plan: General Monitoring Plan: Standard Monitors Recovery Plan: PACU
[2019-05-05 08:54] LABS: Creatine Kinase 777 Units/L (30-223)
--- NOTE | 2019-05-05 09:20 | Internal Med Progress Note ---
<Jeanette De Guzman - Last Filed: 05/05/19 14:30> Hospitalist Progress Note - Encounter Date of Encounter: 05/05/19 - Exam Vitals: Temp Pulse Resp BP Pulse Ox 98.5 F 87 16 110/67 95 05/05/19 11:00 05/05/19 11:00 05/05/19 11:00 05/05/19 11:00 05/05/19 11:00 - Assessment and Plan (1) Fracture, intertrochanteric, right femur Current Visit: Yes Status: Acute (2) Hyponatremia Current Visit: Yes Status: Acute (3) Elevated creatine kinase level Current Visit: Yes Status: Acute (4) Anemia Current Visit: Yes Status: Acute (5) Hypoglycemia Current Visit: Yes Status: Acute (6) COPD (chronic obstructive pulmonary disease) Current Visit: Yes Status: Chronic (7) Hypertension Current Visit: Yes Status: Acute (8) DVT prophylaxis Current Visit: Yes Status: Acute - Time Spent with Patient Total time spent is greater than 50% in coordination of care (as documented) at patient's floor/unit and/or counseling patient: Internal Medicine: Result - Labs CBC & Chem 7: 05/05/19 07:33 05/05/19 07:33 Labs: Short CBC 05/05/19 Range/Units 07:33 WBC 8.1 (4.3-11.1) K/mcL Hgb 8.7 L D (12.9-16.9) g/dL Hct 24.9 L (37.5-50.1) % Plt Count 144 (140-400) K/mcL Neutrophils # 5.8 (1.6-8.9) K/mcL BMP 05/04/19 05/04/19 05/05/19 16:13 20:34 00:16 Sodium 125 L 120 L* 125 L Potassium Chloride Carbon Dioxide BUN Creatinine Glucose Calcium 05/05/19 05/05/19 06:14 07:33 Sodium 129 L 129 L Potassium 3.7 Chloride 97 L Carbon Dioxide 23 BUN 12 Creatinine 0.69 L Glucose 113 H Calcium 8.5 L - ABG Interpretation ABG results: PT/INR, D-dimer PT 11.2 Seconds (9.4-12.1) 05/04/19 02:27 Consult Discharge Plan - Plan [facility]: [facility]Primary Care Provider[facility] - - Attending Attestation I examined this patient and my medical decision-making was reviewed with the Resident Physician Dr Bai. I agree with the documented findings, disposition and treatment plan as described except to the extent set forth below. Mr Reis is being observed for hip fracture awake, cont right hip pain with any movement. He denies cp, sob or chest pressure here or ever at home with exertion. He is awaiting OR today gen- alert, awake,appears stated age cv- reg rate and rhythm, normal s1,s2, no murmurs appreciated lungs- ctabl, normal resp effort on room air msk- right LE rotated and shortened neuro- AAOx3 Right hip fracture- plan for OR today, prn pain control Pre Op risk assessment- RCRI score is zero, Class I risk EKG reviewed with minial ST depression V3 and no reciprocal changes (changed from ekg done in October 2006, no recent available for review in computer), echo preformed and without significant findings -he does not require any further cardiac eval prior to surgery Chronic Hyponatremia, suspect SIADH, however CK elevated requiring IVFs- cont to monitor, cont salt tabs, highly suspect isolated 120 Na overnight was incorrect given repeat same as previous (125), repeat CK now 700s and will have to cont IVFs Pre Operative anemia, chronicity unknown, hemodynamically stable and asx without overt bleeding -cont to trend, will check post op further dx and plan as noted by resident <Andre Bai - Last Filed: 05/05/19 17:24> Hospitalist Progress Note - Encounter Date of Encounter: 05/05/19 Time of Encounter: 09:20 - Subjective Interval History: Patient scheduled for surgery today. No acute events overnight, hemoglobin and sodium stable this morning. Patient states he is ready for surgery today, "today is his good a day as any". He complains of continued pain in his right hip which is understandable but otherwise denies any acute complaints - Exam Vitals: Temp Pulse Resp BP Pulse Ox 98.7 F 84 16 105/64 93 05/05/19 06:44 05/05/19 06:44 05/05/19 06:44 05/05/19 06:44 05/05/19 06:44 Exam: General: Alert and oriented Skin:Normal color, no rash, no lesions. HEENT:EOM, pupils equal, round and reactive. Cardiovascular:Normal S1 & S2, no rubs, murmurs or gallops. No JVD. Pulse regular. Lungs:Normal breath sounds, no wheezes or crackles. Abdomen:Soft, non-tender, no rigidity. Extremities: Right lower extremity in external rotation, motor and sensation intact in distal bilateral lower extremities Neurological: No focal deficits noted Pulses:Carotid and radial pulses normal +2. Rest of the physical exam is non contributory - Assessment and Plan (1) Fracture, intertrochanteric, right femur Current Visit: Yes Status: Acute Assessment and Plan: Right hip fixation performed today without incident Patient transferred back to the floor for recovery Oxycodone ordered by orthopedics for pain control (2) Hyponatremia Current Visit: Yes Status: Acute Assessment and Plan: Patient presented with hyponatremia of 124 Hypotonic euvolemic hyponatremia, there is concern for SIADH, cortisol and TSH within normal limits We are supplementing with normal saline and oral sodium chloride Sodium has stabilized at 132 today, We will continue to monitor and supplement as necessary (3) Elevated creatine kinase level Current Visit: Yes Status: Acute Assessment and Plan: Creatine kinase elevated on admission, likely secondary to downtime from femur fracture Renal function remains stable, we will continue to supplement fluids (4) Anemia Current Visit: Yes Status: Acute Assessment and Plan: Patient presented with mild normocytic anemia of unknown etiology Hemoglobin lower this morning at 8.8, repeated after surgery 8.7 We will repeat hemoglobin once this evening and again in the morning (5) Hypoglycemia Current Visit: Yes Status: Acute Assessment and Plan: Patient admitted with hypoglycemia of 64, repeat 66, then normalized [id number] glucose has remained normal today Every 6 hour Accu-Cheks ordered and when necessary dextrose in place (6) COPD (chronic obstructive pulmonary disease) Current Visit: Yes Status: Chronic Assessment and Plan: History of COPD with home Combivent and Symbicort Currently stable without signs of exacerbation (7) DVT prophylaxis Current Visit: Yes Status: Acute Assessment and Plan: Sequential compression devices (8) Hypertension Current Visit: Yes Status: Acute Assessment and Plan: Home Norvasc continued, blood pressures have been stable this admission (9) Diastolic heart failure with preserved ejection fraction Current Visit: Yes Status: Chronic Assessment and Plan: Echocardiogram performed for surgical clearance Mild diastolic dysfunction with preserved ejection fraction of 65% identified (10) Seizure Current Visit: No Status: Chronic Assessment and Plan: History of seizures, controlled at home with phenytoin, phenytoin has been continued here, no signs of seizure here - Time Spent with Patient Total time spent is greater than 50% in coordination of care (as documented) at patient's floor/unit and/or counseling patient: Internal Medicine: Result - Labs CBC & Chem 7: 05/05/19 16:03 05/05/19 07:33 Labs: Short CBC 05/05/19 Range/Units 07:33 WBC 8.1 (4.3-11.1) K/mcL Hgb 8.7 L D (12.9-16.9) g/dL Hct 24.9 L (37.5-50.1) % Plt Count 144 (140-400) K/mcL Neutrophils # 5.8 (1.6-8.9) K/mcL BMP 05/04/19 05/04/19 05/04/19 10:35 11:53 16:13 Sodium 126 L 125 L 125 L Potassium Chloride Carbon Dioxide BUN Creatinine Glucose Calcium 05/04/19 05/05/19 05/05/19 20:34 00:16 06:14 Sodium 120 L* 125 L 129 L Potassium 3.7 Chloride 97 L Carbon Dioxide 23 BUN 12 Creatinine 0.69 L Glucose 113 H Calcium 8.5 L 05/05/19 07:33 Sodium 129 L Potassium Chloride Carbon Dioxide BUN Creatinine Glucose Calcium - ABG Interpretation ABG results: PT/INR, D-dimer PT 11.2 Seconds (9.4-12.1) 05/04/19 02:27 - Impressions Impressions Echocardiogram 05/04/19 08:27 Impressions: LVEF 65%. Mild left ventricular diastolic dysfunction. Definity echo contrast was used. Normal right ventricular structure and function. Mild tricuspid regurgitation. Borderline pulmonary hypertension. Left Ventricular Wall Motion: Rest Echo Findings All wall segments showed normal motion. Findings: Study Quality * Technically adequate exam. ECG Findings * Normal sinus rhythm. Left Ventricle * LVEF 65%. * Mild left ventricular diastolic dysfunction. * Definity echo contrast was used. * Normal LV chamber size, wall thickness and function. Right Ventricle * Normal right ventricular structure and function. Left Atrium * Normal left atrial size. Right Atrium * Normal right atrial size. Aortic Valve * No aortic regurgitation. * Trileaflet aortic valve. * Thickening of the NCC. * No aortic stenosis. Mitral Valve * No mitral regurgitation. * Mitral valve not well visualized. * No mitral stenosis. Tricuspid Valve * Normal tricuspid valve structure. * Mild tricuspid regurgitation. * Estimated RA pressure is 3 mmHg. * Estimated RVSP is 34 mmHg. * Borderline pulmonary hypertension. Pulmonic Valve * Pulmonic valve is not well visualized. * No pulmonic stenosis. * No pulmonic regurgitation. Pulmonary Artery * Normally sized aortic root for BSA. Aorta * Normally sized aortic root. Pericardium * There is no pericardial effusion present. Interatrial Septum * No evidence of PFO by color Doppler. IVC * Normal IVC dimensions and inspiratory collapse. <Jeanette De Guzman M - Last Filed: 05/05/19 14:30> (1) Fracture, intertrochanteric, right femur Qualifiers: Encounter type: subsequent encounter Fracture type: closed Fracture alignment: nondisplaced Fracture healing: with routine healing Qualified Code(s): S72.144D - Nondisplaced intertrochanteric fracture of right femur, subsequent encounter for closed fracture with routine healing (4) Anemia Qualifiers: Anemia type: other cause Other causes of anemia: acute posthemorrhagic Qualified Code(s): D62 - Acute posthemorrhagic anemia (6) COPD (chronic obstructive pulmonary disease) Qualifiers: COPD type: unspecified COPD Qualified Code(s): J44.9 - Chronic obstructive pulmonary disease, unspecified (7) Hypertension Qualifiers: Hypertension type: essential hypertension Qualified Code(s): I10 - Essential (primary) hypertension <Andre Bai - Last Filed: 05/05/19 17:24> (1) Fracture, intertrochanteric, right femur Qualifiers: Encounter type: subsequent encounter Fracture type: closed Fracture alignment: nondisplaced Fracture healing: with routine healing Qualified Code(s): S72.144D - Nondisplaced intertrochanteric fracture of right femur, subsequent encounter for closed fracture with routine healing (4) Anemia Qualifiers: Anemia type: other cause Other causes of anemia: acute posthemorrhagic Qualified Code(s): D62 - Acute posthemorrhagic anemia (6) COPD (chronic obstructive pulmonary disease) Qualifiers: COPD type: unspecified COPD Qualified Code(s): J44.9 - Chronic obstructive pulmonary disease, unspecified (8) Hypertension Qualifiers: Hypertension type: essential hypertension Qualified Code(s): I10 - Essential (primary) hypertension
[2019-05-05] MEDS: amLODIPine 5 MG TABLET PO SCH (10:01)
[2019-05-05] MEDS: Loratadine 10 MG TABLET PO SCH (10:01)
[2019-05-05] MEDS: Cholecalciferol (D-3) 1,000 UNIT (25MCG) TABLET PO SCH ×2 (10:02→23:31)
[2019-05-05] MEDS ORDERED: *HR* Propofol 200 MG/20 ML VIAL IVP ONE (13:53)
[2019-05-05] MEDS ORDERED: *HR* FentaNYL (PF) 100 MCG/2 ML VIAL ONE (13:53)
[2019-05-05] MEDS ORDERED: Lidocaine -MPF 2% 2 ML VIAL ONE (13:53)
[2019-05-05] MEDS ORDERED: *HR* PHENYLEPHRINE 1,000 MCG/10 ML SYRINGE IVP ONE (14:57)
[2019-05-05] MEDS ORDERED: EPHEDrine 50 MG/ML VIAL ONE (15:01)
[2019-05-05] MEDS ORDERED: Acetaminophen IV 1,000 MG/100 ML INFUS..BTL ONE (15:06)
--- NOTE | 2019-05-05 15:13 | Orthopedic Operative Note ---
Date of procedure: 05/05/19 Pre-op diagnosis: Right hip fracture Post-op diagnosis: same Procedure: Procedure: Right hip open reduction intramedullary nail fixation Estimated blood loss: 50 cc Hardware: Metal: 10 x 130 degree Synthes TFN, 110 mm helical blade, 36 mm distal locking bolt Operative procedure: The patient was brought to the operating room and placed on the operating room table. After general anesthesia was administered the well leg was place in the well leg roe and the operative leg was placed in the fracture leg roe. All pressure points were padded appropriately. The operative extremity was prepped and draped in the sterile surgical fashion patient received IV antibiotic prior to skin incision. A standard direct lateral approach was made over the entry point of the greater trochanter, the incision was made through the skin and subcutaneous tissue hemostasis was obtained with Bovie cautery. Using careful sharp dissection the fascia was identified and incised, flouroscopic assistance was used to identify the entry point. The guidepin was placed at the entry point using fluroscopic assistance, it was over reamed with the proximal reamer. The nail was placed through the entry hole, across the fracture site into the distal fragment the position was confirmed with fluroscopy. A guide pin was placed through the proximal locking guide from the lateral femur through the nail across the fracture site into the femoral head, it was over reamed with the reamer. The helical blade was placed over the guide pin through the nail into the femoral head, locked in place with the proximal locking bolt. Distal locking bolt was placed through the distal locking guide. position of hardware and fracture reduction found to be acceptable with fluroscopic assistance. The wound was irrigated. Fascia was closed with a running #2 PDS suture. The deep tissue was irrigated and closed deep with #1 PDS suture superficially with 0 PDS suture and skin was closed with Dermabond. The patient was placed in a sterile dressing The patient was extubated and transferred to the recovery room in stable condition. Anesthesia: GETA Surgeon: Emeka Aburto Was there an plant attendant or assistant operator present: No Estimated blood loss (cc): 50 Condition: stable Disposition: PACU
--- NOTE | 2019-05-05 16:07 | Anesthesia Evaluation Post Op ---
Date of Encounter: 05/05/19 Time of Encounter: 16:05 - Vital Signs Vital Signs: Vital Signs/O2 Sat, Most Current Temp Pulse Resp BP Pulse Ox 98.9 F 78 18 121/69 96 05/05/19 16:05 05/05/19 16:05 05/05/19 16:05 05/05/19 16:05 05/05/19 16:05 - Lungs Lungs: Clear Ascult./Percussion - Airway Airway: Non-obstructed - Cardiovascular Regular Rate - Mental Status Mental Status: Alert & Oriented, Answers Appropriately, Baseline Status - Pain Pain Scale: 2 Pain Scale used: Numeric (1 - 10) - Nausea Vomiting Nausea Vomiting: Not Present - Hydration Hydration: NPO, Has not voided - Discharge PostOp Status: Transfer Patient to floor
[2019-05-05] MEDS ORDERED: Ipratropium/Albuterol Neb 3 ML IH PRN (16:55)
[2019-05-05] MEDS ORDERED: Naloxone 0.4 MG/ML INJ IVP PRN (16:55)
[2019-05-05] MEDS ORDERED: *HR* Dextrose 50 % in Water (Syg) 50 ML SYRINGE IVP PRN (16:55)
[2019-05-05] MEDS ORDERED: Dextrose Gel 15 GM/37.5 ML TUBE PO PRN ×2 (16:55)
[2019-05-05] MEDS ORDERED: traMADol 50 MG TABLET PO PRN (16:55)
[2019-05-05] MEDS ORDERED: Ondansetron 4 MG/2 ML VIAL IVP PRN (16:55)
[2019-05-05] MEDS ORDERED: D5% in Water 1,000 ML IVC PRN (16:55)
[2019-05-05 16:56] LABS: Hematocrit 25.4 % (37.5-50.1); Hemoglobin 8.8 g/dL (12.9-16.9)
[2019-05-05 22:39] LABS: Hematocrit 28.5 % (37.5-50.1); Hemoglobin 9.8 g/dL (12.9-16.9)
[2019-05-05] MEDS: *HR* OxyCODONE Immed Rel 5 MG TABLET PO PRN (23:49)
[2019-05-06] MEDS: *HR* OxyCODONE Immed Rel 5 MG TABLET PO PRN ×3 (04:26→21:30)
[2019-05-06 07:04] LABS: BUN/Creatinine Ratio 12 (6-26); Blood Urea Nitrogen 7 mg/dL (8-23); Calcium 8.1 mg/dL (8.6-10.3); Carbon Dioxide 23 mEq/L (23-29); Chloride 100 mEq/L (98-107); Glucose 117 mg/dL (70-105); Osmolality,Calculated 273 (280-300); Potassium 3.6 mEq/L (3.5-5.1); Sodium 132 mEq/L (136-145); eGFR For African Americans > 60 (> 60); eGFR For Non-African Americans > 60 (> 60)
--- NOTE | 2019-05-06 08:00 | Orthopedics Progress Note ---
Date of Encounter: 05/06/19 Time of Encounter: 07:59 Subjective Interval history: Patient was seen this morning doing well without complaints. Afebrile vital signs stable. Operative extremity: Neurovascularly intact Dressing clean dry and intact Calves nontender Assessment and plan: Continue with postoperative care . Objective Vital signs: Vital Signs Temp Pulse Resp BP Pulse Ox 05/06/19 06:39 98.5 F 84 16 104/56 96 05/06/19 04:04 99.0 F 88 16 98/62 94 05/05/19 23:53 99.9 F H 72 20 131/71 92 05/05/19 19:38 98.2 F 98 133/64 05/05/19 18:11 72 106/57 95 05/05/19 17:30 97.7 F 80 18 121/70 92 05/05/19 16:41 98.3 F 80 16 119/71 99 05/05/19 16:05 98.9 F 78 18 121/69 96 05/05/19 15:55 80 18 107/62 92 05/05/19 15:45 81 16 129/74 98 05/05/19 15:35 98.6 F 83 16 127/36 99 05/05/19 11:00 98.5 F 87 16 110/67 95 Intake and Output 05/05/19 05/05/19 05/06/19 15:59 23:59 07:59 Intake Total 100 / 100 Output Total 925 / 1375 250 / 250 Balance -925 / -1375 -150 / -150 Intake: IV Fluids 100 / 100 Ancef 2,000 MG In 0.9 % Sodium 100 / 100 Chloride 100 ML @ 200 mls/hr IVPB Q8H [facility] Rx#:[id number] Output: Urine 875 / 1325 250 / 250 Estimated Blood Loss 50 / 50 Other: # Voids 1 Weight 69.3 kg Patient Weight 05/06/19 23:59 Weight 69.3 kg - Labs CBC & BMP: 05/05/19 22:04 05/06/19 06:25 Labs: Abnormal lab results WBC 12.2 K/mcL (4.3-11.1) H 05/03/19 21:46 RBC 2.52 M/mcL (4.19-5.50) L 05/05/19 07:33 Hgb 9.8 g/dL (12.9-16.9) L 05/05/19 22:04 Hct 28.5 % (37.5-50.1) L 05/05/19 22:04 MCH 34.5 pg (28.0-33.3) H 05/05/19 07:33 Plt Count 127 K/mcL (140-400) L 05/03/19 21:46 Neutrophils # 10.0 K/mcL (1.6-8.9) H 05/03/19 21:46 Platelet Estimate Slight Decrease (Normal) L 05/03/19 21:46 Sodium 132 mEq/L (136-145) L 05/06/19 06:25 Chloride 97 mEq/L (98-107) L 05/05/19 06:14 Carbon Dioxide 13 mEq/L (23-29) L 05/04/19 02:27 BUN 7 mg/dL (8-23) L 05/06/19 06:25 Creatinine 0.57 mg/dL (0.70-1.30) L 05/06/19 06:25 Glucose 117 mg/dL (70-105) H 05/06/19 06:25 POC Glucose 104 mg/dL (70-99) H 05/04/19 03:28 Calculated Osmolality 273 (280-300) L 05/06/19 06:25 Calcium 8.1 mg/dL (8.6-10.3) L 05/06/19 06:25 Magnesium 1.5 mg/dL (1.6-2.6) L 05/04/19 02:27 Alkaline Phosphatase 109 Units/L (34-104) H 05/03/19 21:46 Creatine Kinase 777 Units/L (30-223) H 05/05/19 07:33 B-Natriuretic Peptide 108 pg/mL (Less than 100) H 05/04/19 02:27 Serum Total Protein 5.8 g/dL (6.4-8.9) L 05/04/19 02:27 Globulin 2.2 g/dL (2.4-3.5) L 05/04/19 02:27 Ur Specific [place] >= 1.030 (1.010-1.025) H 05/03/19 21:53 Urine Protein 30 mg/dL (Neg-Trace) H 05/03/19 21:53 Urine Ketones 40 mg/dL (Negative) H 05/03/19 21:53 Urine Microscopic RBC 5-15 per hpf (0-3) H 05/03/19 21:53 Ur Squamous Epith Cells Many per lpf (None-Few) H 05/03/19 21:53 Consult Discharge Plan - Plan Referrals: [facility] [Primary Care Provider] -
--- NOTE | 2019-05-06 08:14 | Internal Med Progress Note ---
<RichardsonFinaAndre Lui - Last Filed: 05/06/19 15:30> Hospitalist Progress Note - Encounter Date of Encounter: 05/06/19 Time of Encounter: 08:14 - Subjective Interval History: Open reduction internal fixation of right femur performed yesterday by orthopedic surgery without incident. No acute events overnight, patient complaining of moderate right hip pain today which is understandable after surgery. On my evaluation he had just finished with physical therapy and recognized he will need to work hard to recover. He otherwise denied any acute complaints. - Exam Vitals: Temp Pulse Resp BP Pulse Ox 98.5 F 84 16 104/56 96 05/06/19 06:39 05/06/19 06:39 05/06/19 06:39 05/06/19 06:39 05/06/19 06:39 Exam: General: Alert and oriented Skin:Normal color, no rash, no lesions. HEENT:EOM, pupils equal, round and reactive. Cardiovascular:Normal S1 & S2, no rubs, murmurs or gallops. No JVD. Pulse regular. Lungs:Normal breath sounds, no wheezes or crackles. Abdomen:Soft, non-tender, no rigidity. Extremities: motor and sensation intact in distal bilateral lower extremities Neurological: No focal deficits noted Pulses:Carotid and radial pulses normal +2. Rest of the physical exam is non contributory - Assessment and Plan (1) Fracture, intertrochanteric, right femur Current Visit: Yes Status: Acute Assessment and Plan: Right hip fixation performed yesterday without incident Patient transferred back to the floor for recovery Oxycodone ordered by orthopedics for pain control Patient working with PT/OT today Plan to continue supportive care and rehabilitation, likely will require SNF at discharge (2) Hyponatremia Current Visit: Yes Status: Acute Assessment and Plan: Patient presented with hyponatremia of 124 Hypotonic euvolemic hyponatremia, there was concern for SIADH, cortisol and TSH within normal limits We are supplementing with normal saline and oral sodium chloride Sodium has stabilized , We will continue to monitor and supplement as necessary (3) Elevated creatine kinase level Current Visit: Yes Status: Acute Assessment and Plan: Creatine kinase elevated on admission, likely secondary to downtime from femur fracture Renal function remains stable, CK has trended down, we will continue to supplement fluids (4) Anemia Current Visit: Yes Status: Acute Assessment and Plan: Patient presented with mild normocytic anemia of unknown etiology Hemoglobin has remained around 8.8 before and after surgery We will repeat hemoglobin once this evening and again in the morning (5) Hypoglycemia Current Visit: Yes Status: Acute Assessment and Plan: Patient admitted with hypoglycemia of 64, repeat 66, then normalized [id number] glucose has remained stable Before meals at bedtime Accu-Cheks ordered and when necessary dextrose in place (6) COPD (chronic obstructive pulmonary disease) Current Visit: Yes Status: Chronic Assessment and Plan: History of COPD with home Combivent and Symbicort Currently stable without signs of exacerbation (7) DVT prophylaxis Current Visit: Yes Status: Acute Assessment and Plan: Sequential compression devices (8) Hypertension Current Visit: Yes Status: Acute Assessment and Plan: Home Norvasc continued, blood pressures have been stable this admission (9) Diastolic heart failure with preserved ejection fraction Current Visit: Yes Status: Chronic Assessment and Plan: Echocardiogram performed for surgical clearance Mild diastolic dysfunction with preserved ejection fraction of 65% identified (10) Seizure Current Visit: No Status: Chronic Assessment and Plan: History of seizures, controlled at home with phenytoin, phenytoin has been continued here, no signs of seizure here - Time Spent with Patient Total time spent is greater than 50% in coordination of care (as documented) at patient's floor/unit and/or counseling patient: Internal Medicine: Result - Labs CBC & Chem 7: 05/06/19 09:53 05/06/19 06:25 Labs: Short CBC 05/05/19 05/05/19 05/05/19 Range/Units 07:33 16:03 22:04 WBC 8.1 (4.3-11.1) K/mcL Hgb 8.7 L D 8.8 L 9.8 L (12.9-16.9) g/dL Hct 24.9 L 25.4 L 28.5 L (37.5-50.1) % Plt Count 144 (140-400) K/mcL Neutrophils # 5.8 (1.6-8.9) K/mcL BMP 05/05/19 05/05/19 05/05/19 07:33 16:03 22:04 Sodium 129 L 132 L 134 L Potassium Chloride Carbon Dioxide BUN Creatinine Glucose Calcium 05/06/19 06:25 Sodium 132 L Potassium 3.6 Chloride 100 Carbon Dioxide 23 BUN 7 L Creatinine 0.57 L Glucose 117 H Calcium 8.1 L - ABG Interpretation ABG results: PT/INR, D-dimer PT 11.2 Seconds (9.4-12.1) 05/04/19 02:27 - Impressions Impressions Fluoroscopy 05/05/19 15:20 IMPRESSION: Intraprocedural fluoroscopic spot images as above. See separate procedure report for more information. D/ / Bryan Esteves MD / Bryan Esteves MD Interpreting Provider: Bryan Esteves MD Hip X-Ray 05/05/19 15:20 IMPRESSION: Intraprocedural fluoroscopic spot images as above. See separate procedure report for more information. D/ / Bryan Esteves MD / Bryan Esteves MD Interpreting Provider: Bryan Esteves MD Hip X-Ray 05/05/19 15:52 IMPRESSION: Status post ORIF of intertrochanteric fracture of right proximal femur as described above. D/ / 05/05/2019 16:02:14 Ernesto Mccormick MD / doris Interpreting Provider: Ernesto Mccormick MD Consult Discharge Plan - Plan [facility]errals: [facility] [Primary Care Provider[facility] - <Jeanette De Guzman - Last Filed: 05/06/19 17:11> Hospitalist Progress Note - Encounter Date of Encounter: 05/06/19 - Exam Vitals: Temp Pulse Resp BP Pulse Ox 98.7 F 87 16 116/69 95 05/06/19 10:07 05/06/19 10:07 05/06/19 10:07 05/06/19 10:08 05/06/19 10:07 - Assessment and Plan (1) Fracture, intertrochanteric, right femur Current Visit: Yes Status: Acute (2) Hyponatremia Current Visit: Yes Status: Acute (3) Elevated creatine kinase level Current Visit: Yes Status: Acute (4) Anemia Current Visit: Yes Status: Acute (5) Hypoglycemia Current Visit: Yes Status: Acute (6) COPD (chronic obstructive pulmonary disease) Current Visit: Yes Status: Chronic (7) Hypertension Current Visit: Yes Status: Acute (8) DVT prophylaxis Current Visit: Yes Status: Acute - Time Spent with Patient Total time spent is greater than 50% in coordination of care (as documented) at patient's floor/unit and/or counseling patient: Internal Medicine: Result - Labs CBC & Chem 7: 05/06/19 16:00 05/06/19 06:25 Labs: Short CBC 05/05/19 05/05/19 05/06/19 Range/Units 16:03 22:04 09:53 WBC 10.5 (4.3-11.1) K/mcL Hgb 8.8 L 9.8 L 8.3 L D (12.9-16.9) g/dL Hct 25.4 L 28.5 L 24.8 L (37.5-50.1) % Plt Count 143 (140-400) K/mcL Neutrophils # 8.3 (1.6-8.9) K/mcL BMP 05/05/19 05/05/19 05/06/19 16:03 22:04 06:25 Sodium 132 L 134 L 132 L Potassium 3.6 Chloride 100 Carbon Dioxide 23 BUN 7 L Creatinine 0.57 L Glucose 117 H Calcium 8.1 L - ABG Interpretation ABG results: PT/INR, D-dimer PT 11.2 Seconds (9.4-12.1) 05/04/19 02:27 - Impressions Impressions Fluoroscopy 05/05/19 15:20 IMPRESSION: Intraprocedural fluoroscopic spot images as above. See separate procedure report for more information. D/ / Bryan Esteves MD / Bryan Esteves MD Interpreting Provider: Bryan Esteves MD Hip X-Ray 05/05/19 15:20 IMPRESSION: Intraprocedural fluoroscopic spot images as above. See separate procedure report for more information. D/ / Bryan Esteves MD / Bryan Esteves MD Interpreting Provider: Bryan Esteves MD Hip X-Ray 05/05/19 15:52 IMPRESSION: Status post ORIF of intertrochanteric fracture of right proximal femur as described above. D/ / 05/05/2019 16:02:14 Ernesto Mccormick MD / doris Interpreting Provider: Ernesto Mccormick MD - Attending Attestation I examined this patient and my medical decision-making was reviewed with the Resident Physician Dr Bai. I agree with the documented findings, disposition and treatment plan as described except to the extent set forth below. Mr Reis is being observed for hip fracture requiring surgical intervention awake, mild hip pain, sitting in chair, + flatus, no difficulty urinating or with eating/drinking. no sob cough or wheezing gen- alert, awake,appears stated age cv- reg rate and rhythm, normal s1,s2 lungs- ctabl, normal resp effort on O2 nc msk- right LE rotated and shortened neuro- AAOx3 Right hip fracture- post op care as per ortho, pt rec for snf and SW working on placement, incentive spirometry Chronic Hyponatremia, suspect SIADH, however CK elevated requiring IVFs- salt tabs, repeat CK, dc ivfs when ck improves to near normal Pre Operative anemia, chronicity unknown, with acute suspected post operative blood loss anemia hemodynamically stable and asx without overt bleeding -cont to trend, vte ppx is scds and ambulate at this time further dx and plan as noted by resident dispo- will go to snf when placed/approved update repeat hgb this afternoon cont to down trend now 7.5 without any evidence of bleeding from site of surgery or other, 1 unit prbc ordered as BP as starting to become lower normotensive <Andre Bai - Last Filed: 05/06/19 15:30> (1) Fracture, intertrochanteric, right femur Qualifiers: Encounter type: subsequent encounter Fracture type: closed Fracture alignment: nondisplaced Fracture healing: with routine healing Qualified Code(s): S72.144D - Nondisplaced intertrochanteric fracture of right femur, subsequent encounter for closed fracture with routine healing (4) Anemia Qualifiers: Anemia type: other cause Other causes of anemia: acute posthemorrhagic Qualified Code(s): D62 - Acute posthemorrhagic anemia (6) COPD (chronic obstructive pulmonary disease) Qualifiers: COPD type: unspecified COPD Qualified Code(s): J44.9 - Chronic obstructive pulmonary disease, unspecified (8) Hypertension Qualifiers: Hypertension type: essential hypertension Qualified Code(s): I10 - Essential (primary) hypertension <Jeanette De Guzman M - Last Filed: 05/06/19 17:11> (1) Fracture, intertrochanteric, right femur Qualifiers: Encounter type: subsequent encounter Fracture type: closed Fracture alignment: nondisplaced Fracture healing: with routine healing Qualified Code(s): S72.144D - Nondisplaced intertrochanteric fracture of right femur, subsequent encounter for closed fracture with routine healing (4) Anemia Qualifiers: Anemia type: other cause Other causes of anemia: acute posthemorrhagic Qualified Code(s): D62 - Acute posthemorrhagic anemia (6) COPD (chronic obstructive pulmonary disease) Qualifiers: COPD type: unspecified COPD Qualified Code(s): J44.9 - Chronic obstructive pulmonary disease, unspecified (7) Hypertension Qualifiers: Hypertension type: essential hypertension Qualified Code(s): I10 - Essential (primary) hypertension
[2019-05-06 10:12] LABS: Basophils % 0.4 %; Eosinophils % 0.2 %; Hematocrit 24.8 % (37.5-50.1); Hemoglobin 8.3 g/dL (12.9-16.9); Immature Granulocytes % 0.6 % (0-4); Lymphocytes # 1.1 K/mcL (0.6-4.6); Lymphocytes % 10.4 %; Mean Corpuscular HGB Conc 33.5 g/dL (31.6-35.5); Mean Corpuscular Hemoglobin 34.3 pg (28.0-33.3); Mean Corpuscular Volume 102.5 fL (83.0-100.0); Mean Platelet Volume 9.7 fL (9.4-12.4); Monocytes % 9.8 %; Platelet Count 143 K/mcL (140-400); Red Blood Count 2.42 M/mcL (4.19-5.50); Red Cell Distribution Width 12.9 % (11.5-14.5); Segmented Neutrophils % 78.6 %; White Blood Count 10.5 K/mcL (4.3-11.1)
[2019-05-06] MEDS: Cholecalciferol (D-3) 1,000 UNIT (25MCG) TABLET PO SCH ×2 (10:12→21:10)
[2019-05-06] MEDS: Loratadine 10 MG TABLET PO SCH (10:13)
[2019-05-06] MEDS: amLODIPine 5 MG TABLET PO SCH (10:13)
[2019-05-06 10:21] LABS: Neutrophils # 8.3 K/mcL (1.6-8.9)
[2019-05-06 11:09] LABS: Platelet Estimate Normal (Normal)
--- NOTE | 2019-05-06 15:43 | Electrocardiograph Report ---
[address] [address] Test Date: 2019-05-05 Pat Name: [place] Department: 114 Room: [facility] Gender: M Hotel Reservation Agent: : [id number] Requested By: Jeanette De Guzman Order Number: [id number] Reading MD: Ervin Vásquez Measurements Intervals [place] Rate: 86 P: 61 MT: 145 QRS: 53 QRSD: 93 T: 49 QT: 372 QTc: 415 Interpretive Statements SINUS RHYTHM WITH OCCASIONAL VENTRICULAR PREMATURE COMPLEXES NONSPECIFIC ST & T-WAVE ABNORMALITY Electronically Signed On 05-06-2019 15:41:27 EDT by Ervin Vásquez
[2019-05-06] MEDS ORDERED: Acetaminophen 325 MG TABLET PO PRN (15:56)
[2019-05-06] MEDS: 0.9 % Sodium Chloride 1,000 ML IVC SCH (15:56)
[2019-05-06 16:44] LABS: Hematocrit 21.9 % (37.5-50.1); Hemoglobin 7.5 g/dL (12.9-16.9)
[2019-05-06] MEDS ORDERED: 0.9 % Sodium Chloride 250 ML ONE (20:31)
[2019-05-07 05:53] LABS: Basophils % 0.4 %; Eosinophils # 0.1 K/mcL (0.0-0.6); Eosinophils % 0.7 %; Hematocrit 24.1 % (37.5-50.1); Hemoglobin 8.2 g/dL (12.9-16.9); Immature Granulocytes % 0.7 % (0-4); Lymphocytes # 1.3 K/mcL (0.6-4.6); Lymphocytes % 17.4 %; Mean Corpuscular Hemoglobin 33.2 pg (28.0-33.3); Mean Corpuscular Volume 97.6 fL (83.0-100.0); Mean Platelet Volume 9.8 fL (9.4-12.4); Monocytes # 0.7 K/mcL (0.0-1.3); Monocytes % 10.3 %; Neutrophils # 5.1 K/mcL (1.6-8.9); Platelet Count 147 K/mcL (140-400); Red Blood Count 2.47 M/mcL (4.19-5.50); Red Cell Distribution Width 14.9 % (11.5-14.5); Segmented Neutrophils % 70.5 %; White Blood Count 7.2 K/mcL (4.3-11.1)
[2019-05-07 06:12] LABS: BUN/Creatinine Ratio 15 (6-26); Blood Urea Nitrogen 9 mg/dL (8-23); Calcium 8.5 mg/dL (8.6-10.3); Carbon Dioxide 23 mEq/L (23-29); Chloride 101 mEq/L (98-107); Glucose 107 mg/dL (70-105); Osmolality,Calculated 275 (280-300); Potassium 3.6 mEq/L (3.5-5.1); Sodium 133 mEq/L (136-145); eGFR For African Americans > 60 (> 60); eGFR For Non-African Americans > 60 (> 60)
[2019-05-07 06:26] LABS: Platelet Estimate Decreased (Normal)
--- NOTE | 2019-05-07 09:12 | Discharge Summary ---
<Jeanette De Guzman - Last Filed: 05/07/19 16:26> Date of Encounter: 05/07/19 - Discharge Diagnosis (1) Fracture, intertrochanteric, right femur Status: Acute Qualifiers: Encounter type: subsequent encounter Fracture type: closed Fracture alignment: nondisplaced Fracture healing: with routine healing Qualified Code(s): S72.144D - Nondisplaced intertrochanteric fracture of right femur, subsequent encounter for closed fracture with routine healing (2) Hyponatremia Status: Acute (3) Elevated creatine kinase level Status: Acute (4) Anemia Status: Acute Qualifiers: Anemia type: other cause Other causes of anemia: acute posthemorrhagic Qualified Code(s): D62 - Acute posthemorrhagic anemia (5) Hypoglycemia Status: Acute (6) COPD (chronic obstructive pulmonary disease) Status: Chronic Qualifiers: COPD type: unspecified COPD Qualified Code(s): J44.9 - Chronic obstructive pulmonary disease, unspecified (7) Hypertension Status: Acute Qualifiers: Hypertension type: essential hypertension Qualified Code(s): I10 - Essential (primary) hypertension (8) DVT prophylaxis Status: Acute Hospital course: Mr. Reis is a 63 year old male - Time Spent with Patient Total time spent providing and/or coordinating discharge services: - Discharge Medications Prescriptions: New Docusate [Colace] 100 mg PO BID 7 Days #14 capsule OxyCODONE/APAP 5/325 [Percocet 5/325 MG] 1 each PO Q6HR PRN 2 Days #8 tablet PRN Reason: Moderate Pain 4-6 Sodium Chloride [Sodium Chloride Tab] 1 gm PO BID 7 Days #14 tablet Continued Loratadine [Claritin] 10 mg PO DAILY Cholecalciferol (D-3) [Vitamin D] 2,000 unit PO DAILY Phenytoin ER [Dilantin ER] 200 mg PO HS amLODIPine [Norvasc] 5 mg PO DAILY Budesonide/Formoterol 160/4.5 [Symbicort 160/4.5] 2 puff IH BIDR Ipratropium/Albuterol Sulfate [Combivent Respimat 20-100 Mcg] 1 puff IH QID PRN PRN Reason: Shortness Of Breath Phenytoin ER [Dilantin ER] 300 mg PO QAM Home Medications: Budesonide/Formoterol 160/4.5 [Symbicort 160/4.5] 2 puff IH BIDR 05/04/19 [History] Cholecalciferol (D-3) [Vitamin D] 2,000 unit PO DAILY 05/04/19 [History] Ipratropium/Albuterol Sulfate [Combivent Respimat 20-100 Mcg] 1 puff IH QID PRN 05/04/19 [History] Loratadine [Claritin] 10 mg PO DAILY 05/04/19 [History] Phenytoin ER [Dilantin ER] 200 mg PO HS 05/04/19 [History] Phenytoin ER [Dilantin ER] 300 mg PO QAM 05/04/19 [History] amLODIPine [Norvasc] 5 mg PO DAILY 05/04/19 [History] Docusate [Colace] 100 mg PO BID 7 Days #14 capsule 05/07/19 [Rx] OxyCODONE/APAP 5/325 [Percocet 5/325 MG] 1 each PO Q6HR PRN 2 Days #8 tablet 05/07/19 [Rx] Sodium Chloride [Sodium Chloride Tab] 1 gm PO BID 7 Days #14 tablet 05/07/19 [Rx] Allergies/Adverse Reactions: Allergy/AdvReac Type Severity Reaction Status Date / Time No Known Allergies Allergy Verified 06/12/17 12:32 Date of admission: 05/03/19 23:58 Primary care physician: [facility]CP [facility] Consults: 05/04/19 00:02 Consult to Orthopedic Surgery [CONS] Routine Consulting Provider: [facility] Reason for Consult: Right intertrochanteric fracture status post fall Call Completed: Yes 05/05/19 16:55 Consult to Occupational Therapy [CONS] Routine Comment: Evaluate, develop and implement POC Reason for Consult: post hip surgery Does patient have active BEDREST order?: No Is patient medically & hemodynamically stable?: Yes Patient assessed for mobility or mobilized this visit?: Yes Consult to Orthopedic Navigator [CONS] [CONS] Routine Consult to Physical Therapy [CONS] Routine Comment: Evaluate, develop and implement POC Reason for Consult: post hip surgery Does patient have active BEDREST order?: No Is patient medically & hemodynamically stable?: Yes Patient assessed for mobility or mobilized this visit?: Yes Consult to Director Business Development [CONS] Routine Reason for SW Consult: post -op hip fracture RT Post Op Consult [CONS] Routine - Constitutional Vitals: Temp Pulse Resp BP Pulse Ox 99.0 F 87 17 112/67 97 05/07/19 11:06 05/07/19 11:06 05/07/19 11:06 05/07/19 11:06 05/07/19 11:06 - Patient Status Disposition: Transfer Inpatient Rehab Fac Condition: Good Overall status at discharge: patient is progressing back to baseline - Discharge Instructions Follow Up With: Emeka Aburto MD [Partnered Physician] - Khadijah Tsai CNP [Advanced Practice Nurse] - 05/19/19 1:00 pm [facility] [Primary Care Provider[facility] - - Diet and Activity Activity: increase activity as tolerated Diet: low fat, low cholesterol, low salt diet - Attending Attestation I examined this patient and my medical decision-making was reviewed with the Resident Physician Dr Bai. I agree with the documented findings, disposition and treatment plan as described except to the extent set forth below. Mr Reis is being observed for hip fracture requiring surgical intervention awake, eating breakfast, has had bm, no urinary issues. No bleeding, cp, sob or fatigue. He is awaiting transfer to [facility]. He has no ocmplaints and no questions regarding dc. gen- alert, awake,appears stated age cv- reg rate and rhythm, normal s1,s2 lungs- ctabl, normal resp effort on room air msk- RLE dressing c/d/i, no ecchymosis or hematoma neuro- AAOx3 Right hip fracture- [facility], no pharm vte ppx gven anemia, WBAT w assistance, fu w Dr Aburto In setting of hip fx presented with mild Rhabdo- CK down to 300s, may cont with oral intake, outpt recheck of CK in follow up Chronic Hyponatremia, suspect SIADH, improved and stable- cont salt tabs, fu with pcp, outpt bmp in fu Pre Operative anemia, chronicity unknown, with acute suspected post operative blood loss anemia hemodynamically stable and asx without overt bleeding -hgb s table post prbc, outpt anemia work up with PCP, cbc in follow up further dx and plan as noted by resident time spent on dc 40 min dispo- [facility], if it is not today, will be Friday intermittent labs if he awaits bed placement this weekend as they have been stable <Andre Bai Lui - Last Filed: 05/07/19 19:11> - NOTES TO OUTPATIENT PROVIDER Notes to Outpatient Provider: Mr. Reis was treated for right intertrochanteric femur fracture and hyponatremia and anemia. He was successfully surgically fixated and hyponatremia was resolved with salt tabs and anemia remained stable. We will discharge in stable conditions with only new medication being oral pain control and oral sodium chloride. Recommend repeat hemoglobin/CK/BMP in 3-5 days. Date of Encounter: 05/07/19 Time of Encounter: 09:12 - Discharge Diagnosis (1) Fracture, intertrochanteric, right femur Priority: Primary Status: Acute Assessment and Plan: Right hip fixation performed yesterday without incident Patient transferred back to the floor for recovery Oxycodone ordered by orthopedics for pain control Patient working with PT/OT today Patient will discharged to [facility] in stable condition for continued physical therapy Qualifiers: Encounter type: subsequent encounter Fracture type: closed Fracture alignment: nondisplaced Fracture healing: with routine healing Qualified Code(s): S72.144D - Nondisplaced intertrochanteric fracture of right femur, subsequent encounter for closed fracture with routine healing (2) Hyponatremia Priority: Secondary Status: Resolved Assessment and Plan: Patient presented with hyponatremia of 124 Hypotonic euvolemic hyponatremia, there was concern for SIADH, cortisol and TSH within normal limits We are supplementing with normal saline and oral sodium chloride Sodium has stabilized , We will discharge with 1 g sodium chloride orally twice a day (3) Elevated creatine kinase level Priority: Secondary Status: Resolved Assessment and Plan: Creatine kinase elevated on admission, likely secondary to downtime from femur fracture Renal function remains stable, CK has trended down, stable (4) Anemia Priority: Secondary Status: Acute Assessment and Plan: Patient presented with mild normocytic anemia of unknown etiology Hemoglobin has remained around 8.8 before and after surgery Qualifiers: Anemia type: other cause Other causes of anemia: acute posthemorrhagic Qualified Code(s): D62 - Acute posthemorrhagic anemia (5) Hypoglycemia Priority: Secondary Status: Resolved Assessment and Plan: Patient admitted with hypoglycemia of 64, repeat 66, then normalized [id number] glucose has remained stable (6) COPD (chronic obstructive pulmonary disease) Priority: Secondary Status: Chronic Assessment and Plan: History of COPD with home Combivent and Symbicort Currently stable without signs of exacerbation Qualifiers: COPD type: unspecified COPD Qualified Code(s): J44.9 - Chronic obstructive pulmonary disease, unspecified (7) DVT prophylaxis Priority: Secondary Status: Acute (8) Hypertension Priority: Secondary Status: Chronic Assessment and Plan: Home Norvasc continued, blood pressures have been stable this admission Qualifiers: Hypertension type: essential hypertension Qualified Code(s): I10 - Essential (primary) hypertension (9) Diastolic heart failure with preserved ejection fraction Priority: Secondary Status: Chronic Assessment and Plan: Echocardiogram performed for surgical clearance Mild diastolic dysfunction with preserved ejection fraction of 65% identified (10) Seizure Priority: Secondary Status: Chronic Assessment and Plan: History of seizures, controlled at home with phenytoin, phenytoin has been continued here, no signs of seizure here Hospital course: Mr. Reis is a 63 year old male who was admitted on 05/03/19 for right intertrochanteric femur fracture and hyponatremia. CK was also elevated at that time and patient was hypoglycemic and anemic. He was started on supportive care including fluids, dextrose, oral pain control, sodium chloride supplementation. He was cardiovascularly cleared for surgery with history and physical, electrocardiogram, and echocardiogram. He underwent surgical fixation of his femur fracture on 05/05/19 without incident. He remained in the hospital for 2 more days during which time his hypoglycemia resolved, his hyponatremia stab ilized, his anemia remained stable, and he was evaluated by physical therapy and surgery who deemed him stable for discharge to [facility]. All other chronic morbidities were managed as noted in assessment and plan. Discharge discussed with: patient, social work - Time Spent with Patient Total time spent providing and/or coordinating discharge services: Date of admission: 05/03/19 23:58 Primary care physician: [facility] Consults: 05/04/19 00:02 Consult to Orthopedic Surgery [CONS] Routine Consulting Provider: [facility] Reason for Consult: Right intertrochanteric fracture status post fall Call Completed: Yes 05/05/19 16:55 Consult to Occupational Therapy [CONS] Routine Comment: Evaluate, develop and implement POC Reason for Consult: post hip surgery Does patient have active BEDREST order?: No Is patient medically & hemodynamically stable?: Yes Patient assessed for mobility or mobilized this visit?: Yes Consult to Orthopedic Navigator [CONS] [CONS] Routine Consult to Physical Therapy [CONS] Routine Comment: Evaluate, develop and implement POC Reason for Consult: post hip surgery Does patient have active BEDREST order?: No Is patient medically & hemodynamically stable?: Yes Patient assessed for mobility or mobilized this visit?: Yes Consult to Director Business Development [CONS] Routine Reason for SW Consult: post -op hip fracture RT Post Op Consult [CONS] Routine Discharging clinician: Andre Bai Anticipated date of discharge: 05/07/19 - Constitutional Vitals: Temp Pulse Resp BP Pulse Ox 99.3 F 81 16 118/67 98 05/07/19 06:49 05/07/19 06:49 05/07/19 06:49 05/07/19 06:49 05/07/19 06:49 Exam: General: Alert and oriented Skin:Normal color, no rash, no lesions. HEENT:EOM, pupils equal, round and reactive. Cardiovascular:Normal S1 & S2, no rubs, murmurs or gallops. No JVD. Pulse regular. Lungs:Normal breath sounds, no wheezes or crackles. Abdomen:Soft, non-tender, no rigidity. Extremities: motor and sensation intact in distal bilateral lower extremities Neurological: No focal deficits noted Pulses:Carotid and radial pulses normal +2. Rest of the physical exam is non contributory - Patient Status Overall status at discharge: patient is progressing back to baseline
[2019-05-07] MEDS: Cholecalciferol (D-3) 1,000 UNIT (25MCG) TABLET PO SCH ×2 (10:32→20:59)
[2019-05-07] MEDS: Loratadine 10 MG TABLET PO SCH (10:33)
[2019-05-07] MEDS: amLODIPine 5 MG TABLET PO SCH (10:33)
--- NOTE | 2019-05-07 11:00 | Orthopedics Progress Note ---
Date of Encounter: 05/07/19 Time of Encounter: 11:00 Subjective Interval history: Patient was seen this morning doing well without complaints. Afebrile vital signs stable. Operative extremity: Neurovascularly intact Dressing clean dry and intact Calves nontender Assessment and plan: Continue with postoperative care . Discharge when stable Objective Vital signs: Vital Signs Temp Pulse Resp BP Pulse Ox 05/07/19 06:49 99.3 F 81 16 118/67 98 05/07/19 03:52 99.6 F 88 17 104/64 96 05/07/19 00:10 99.1 F 78 16 104/62 94 05/06/19 21:18 99.6 F 86 16 108/67 97 05/06/19 21:00 99.0 F 89 16 108/68 96 05/06/19 20:56 99.1 F 87 16 106/66 96 05/06/19 18:53 98.9 F 83 18 96/59 100 05/06/19 15:53 99.7 F H 95/57 05/06/19 15:49 100.4 F H 88 18 91/49 98 05/06/19 15:00 98.9 F 93 16 112/56 96 Intake and Output 05/06/19 05/07/19 05/07/19 23:59 07:59 15:59 Intake Total 0 / 1580 350 / 590 240 / 590 Output Total 275 / 1275 Balance -275 / 305 350 / 590 240 / 590 Intake: Oral 240 / 240 Blood Product 0 / 0 350 / 350 Rbcs Leuko Poor As-1 Unit 0 / 0 350 / 350 [id number] Output: Urine 275 / 1275 Other: Meal Breakfast Percent of Meal Consumed 70% Weight 69.5 kg Patient Weight 05/07/19 23:59 Weight 69.5 kg - Labs CBC & BMP: 05/07/19 04:53 05/07/19 04:53 Labs: Abnormal lab results WBC 12.2 K/mcL (4.3-11.1) H 05/03/19 21:46 RBC 2.47 M/mcL (4.19-5.50) L 05/07/19 04:53 Hgb 8.2 g/dL (12.9-16.9) L 05/07/19 04:53 Hct 24.1 % (37.5-50.1) L 05/07/19 04:53 MCV 102.5 fL (83.0-100.0) H 05/06/19 09:53 MCH 34.3 pg (28.0-33.3) H 05/06/19 09:53 RDW 14.9 % (11.5-14.5) H 05/07/19 04:53 Plt Count 127 K/mcL (140-400) L 05/03/19 21:46 Neutrophils # 10.0 K/mcL (1.6-8.9) H 05/03/19 21:46 Platelet Estimate Decreased (Normal) L 05/07/19 04:53 Sodium 133 mEq/L (136-145) L 05/07/19 04:53 Chloride 97 mEq/L (98-107) L 05/05/19 06:14 Carbon Dioxide 13 mEq/L (23-29) L 05/04/19 02:27 BUN 7 mg/dL (8-23) L 05/06/19 06:25 Creatinine 0.62 mg/dL (0.70-1.30) L 05/07/19 04:53 Glucose 107 mg/dL (70-105) H 05/07/19 04:53 POC Glucose 104 mg/dL (70-99) H 05/04/19 03:28 Calculated Osmolality 275 (280-300) L 05/07/19 04:53 Calcium 8.5 mg/dL (8.6-10.3) L 05/07/19 04:53 Magnesium 1.5 mg/dL (1.6-2.6) L 05/04/19 02:27 Alkaline Phosphatase 109 Units/L (34-104) H 05/03/19 21:46 Creatine Kinase 440 Units/L (30-223) H 05/06/19 16:00 B-Natriuretic Peptide 108 pg/mL (Less than 100) H 05/04/19 02:27 Serum Total Protein 5.8 g/dL (6.4-8.9) L 05/04/19 02:27 Globulin 2.2 g/dL (2.4-3.5) L 05/04/19 02:27 Ur Specific [place] >= 1.030 (1.010-1.025) H 05/03/19 21:53 Urine Protein 30 mg/dL (Neg-Trace) H 05/03/19 21:53 Urine Ketones 40 mg/dL (Negative) H 05/03/19 21:53 Urine Microscopic RBC 5-15 per hpf (0-3) H 05/03/19 21:53 Ur Squamous Epith Cells Many per lpf (None-Few) H 05/03/19 21:53 Crossmatch See Detail 05/06/19 17:39 Consult Discharge Plan - Plan [facility] -
--- NOTE | 2019-05-07 14:28 | Physician Discharge Referral ---
<Andre Bai - Last Filed: 05/07/19 14:34> [facility] Referral Info Transfer To: [place] [facility] Provider in Charge: [place] Provider in Charge after Transfer: PCP Institutional Level of Care: Intermediate - Diagnosis (1) Fracture, intertrochanteric, right femur Priority: Primary Status: Acute (2) Hyponatremia Priority: Secondary Status: Acute (3) Elevated creatine kinase level Priority: Secondary Status: Acute (4) Anemia Priority: Secondary Status: Acute (5) Hypoglycemia Priority: Secondary Status: Acute (6) COPD (chronic obstructive pulmonary disease) Priority: Secondary Status: Chronic (7) DVT prophylaxis Priority: Secondary Status: Acute (8) Hypertension Priority: Secondary Status: Acute (9) Diastolic heart failure with preserved ejection fraction Priority: Secondary Status: Chronic (10) Seizure Priority: Secondary Status: Chronic Prognosis: Good Aware of Diagnosis: Patient Aware of Prognosis: Patient - Transfer Medications Prescriptions: Docusate [Colace] 100 mg PO BID 7 Days #14 capsule Prescription Printed OxyCODONE/APAP 5/325 [Percocet 5/325 MG] 1 each PO Q6HR PRN 2 Days #8 tablet PRN Reason: Moderate Pain 4-6 Prescription Printed Sodium Chloride [Sodium Chloride Tab] 1 gm PO BID 7 Days #14 tablet Prescription Printed Home Medications: Budesonide/Formoterol 160/4.5 [Symbicort 160/4.5] 2 puff IH BIDR 05/04/19 [History] Cholecalciferol (D-3) [Vitamin D] 2,000 unit PO DAILY 05/04/19 [History] Ipratropium/Albuterol Sulfate [Combivent Respimat 20-100 Mcg] 1 puff IH QID PRN 05/04/19 [History] Loratadine [Claritin] 10 mg PO DAILY 05/04/19 [History] Phenytoin ER [Dilantin ER] 200 mg PO HS 05/04/19 [History] Phenytoin ER [Dilantin ER] 300 mg PO QAM 05/04/19 [History] amLODIPine [Norvasc] 5 mg PO DAILY 05/04/19 [History] Docusate [Colace] 100 mg PO BID 7 Days #14 capsule 05/07/19 [Rx] OxyCODONE/APAP 5/325 [Percocet 5/325 MG] 1 each PO Q6HR PRN 2 Days #8 tablet 05/07/19 [Rx] Sodium Chloride [Sodium Chloride Tab] 1 gm PO BID 7 Days #14 tablet 05/07/19 [Rx] Allergies/Adverse Reactions: Allergy/AdvReac Type Severity Reaction Status Date / Time No Known Allergies Allergy Verified 06/12/17 12:32 - Respiratory Orders None Smoking Cessation: Smoking cessation has been advised. For more information, call the [facility] [facility] at [phone]. - Lab Orders Lab Orders: Other (include drug levels w/frequency) (Recommend CBC/BMP/CK in 3 days) - Advance Directives Code Status: Full Code CERTIFICATION: I certify that the transfer of the above named patient to an Extended Care Facility is necessary for the continuing treatment of the diagnosis listed. The above information is true and accurate reflection of patient's current condition. Confidential - Redisclosure prohibited without a patient's written consent. <Jeanette De Guzman - Last Filed: 05/07/19 16:26> - Diagnosis (1) Fracture, intertrochanteric, right femur Status: Acute (2) Hyponatremia Status: Acute (3) Elevated creatine kinase level Status: Acute (4) Anemia Status: Acute (5) Hypoglycemia Status: Acute (6) COPD (chronic obstructive pulmonary disease) Status: Chronic (7) Hypertension Status: Acute (8) DVT prophylaxis Status: Acute - Respiratory Orders Smoking Cessation: Smoking cessation has been advised. For more information, call the [employer] at [phone]. - Lab Orders Lab Orders: Other (include drug levels w/frequency) - Mobility Orders Ambulate (WBAT) - Rehabiliation Orders Rehab Potential: Good Rehab Orders: Evaluation for Physical Therapy, Evaluation for Occupational Therapy - Diet Orders Cardiac CERTIFICATION: I certify that the transfer of the above named patient to an Extended Care Facility is necessary for the continuing treatment of the diagnosis listed. The above information is true and accurate reflection of patient's current condition. Confidential - Redisclosure prohibited without a patient's written consent.
[2019-05-07] MEDS: *HR* OxyCODONE/APAP 5/325 TABLET PO PRN (16:20)
--- NOTE | 2019-05-07 17:39 | Event Note ---
Date of Encounter: 05/06/19 Time of Encounter: 12:00 POD#1 s/p Right hip open reduction intramedullary nail fixation [Right hip fracture] 05/05/19 Patient seen at bedside. A&Ox3 Dressing and incision c/d/i No calf tenderness, erythema, or warmth. Neurovascularly intact b/l LE. Labwork, vitals, and medications reviewed. Pain control: Adequate Participating in therapy. All questions and concerns addressed. Educated on use of incentive spirometer, ambulation, and hydration. Patient educated on post-operative restrictions and care. Addressed: NONWEIGHTBEARING TO OPERATIVE EXTREMITY. AVOID EXCESSIVE HIP MOTION. LEAVE DRESSING IN PLACE. Opsite placed. Keep dressing intact until first follow up appointment. If greater than 50% saturated, notify office, remove dressing and place appropriate dressing back in place. Leave Zipline intact. Opsite dressing is water resistant, not water-proof. OK to shower, but do not get dressing wet. Patient course and disposition discussed with Dr. Aburto D/C plan[facility]
--- NOTE | 2019-05-07 17:41 | Event Note ---
Date of Encounter: 05/07/19 Time of Encounter: 12:00 POD#2 s/p Right hip open reduction intramedullary nail fixation [Right hip fracture] 05/05/19 Patient seen at bedside. A&Ox3 Dressing and incision c/d/i No calf tenderness, erythema, or warmth. Neurovascularly intact b/l LE. Labwork, vitals, and medications reviewed. Pain control: Adequate Participating in therapy. All questions and concerns addressed. Educated on use of incentive spirometer, ambulation, and hydration. Patient educated on post-operative restrictions and care. Addressed: NONWEIGHTBEARING TO OPERATIVE EXTREMITY. AVOID EXCESSIVE HIP MOTION. LEAVE DRESSING IN PLACE. Opsite placed. Keep dressing intact until first follow up appointment. If greate r than 50% saturated, notify office, remove dressing and place appropriate dressing back in place. Leave Zipline intact. Opsite dressing is water resistant, not water-proof. OK to shower, but do not get dressing wet. Patient course and disposition discussed with Dr. Aburto D/C [facility]
[2019-05-08 04:09] LABS: Hematocrit 25.1 % (37.5-50.1); Hemoglobin 8.4 g/dL (12.9-16.9)
[2019-05-08] MEDS: Cholecalciferol (D-3) 1,000 UNIT (25MCG) TABLET PO SCH ×2 (08:28→21:42)
[2019-05-08] MEDS: Loratadine 10 MG TABLET PO SCH (08:29)
[2019-05-08] MEDS: amLODIPine 5 MG TABLET PO SCH (08:29)
--- NOTE | 2019-05-08 08:43 | Internal Med Progress Note ---
Hospitalist Progress Note - Encounter Date of Encounter: 05/08/19 Time of Encounter: 10:20 - Subjective Interval History: awake, overall doing well, [facility]. Pt aware. c/o right knee pain that has persisted since fall. soreness with ambulating with PT yesterday. - Exam Vitals: Temp Pulse Resp BP Pulse Ox 99.3 F 87 18 144/71 95 05/08/19 07:06 05/08/19 07:06 05/08/19 07:06 05/08/19 07:06 05/08/19 07:06 Exam: gen- alert, awake,appears stated age cv- reg rate and rhythm, normal s1,s2, no pitting le edema lungs- ctabl, normal resp effort on room air msk- RLE dressing c/d/i, no ecchymosis or hematoma, right knee without ecchymosis, increased warmth or deformity, tender to palpation around joint neuro- AAOx3 - Assessment and Plan (1) Fracture, intertrochanteric, right femur Current Visit: Yes Status: Resolved (2) Hyponatremia Current Visit: Yes Status: Acute (3) Elevated creatine kinase level Current Visit: Yes Status: Acute (4) Anemia Current Visit: Yes Status: Acute (5) COPD (chronic obstructive pulmonary disease) Current Visit: Yes Status: Chronic (6) Hypertension Current Visit: Yes Status: Chronic - Summary of Assessment and Plan Summary of Assessment and Plan: [facility] fracture[facility], no pharm vte ppx given anemia, NWB RLE as per ortho, john w Dr Aburto In setting of hip fx presented with mild Rhabdo- CK down to 300s, may cont with oral intake, recheck in am Acute on Chronic Hyponatremia, suspect SIADH, improved and stable- cont salt tabs, fu with pcp, outpt bmp in fu, recheck na in am Pre Operative anemia, chronicity unknown, with acute suspected post operative blood loss anemia hemodynamically stable and asx without overt bleeding -hgb stable post prbc, outpt anemia work up with PCP, cbc in follow up, next hgb check in am Right Knee Pain, suspect sprain/strain with injury Rule out fracture May need outpt r/o of ligamentous injury -check knee XR, ice prn dispo- [facility] intermittent labs as he awaits bed placement this weekend as they have been stable- next check in am Internal Medicine: Result - Labs CBC & Chem 7: 05/08/19 03:32 05/07/19 04:53 Labs: Short CBC 05/08/19 Range/Units 03:32 Hgb 8.4 L (12.9-16.9) g/dL Hct 25.1 L (37.5-50.1) % - ABG Interpretation ABG results: PT/INR, D-dimer PT 11.2 Seconds (9.4-12.1) 05/04/19 02:27 Consult Discharge Plan - Plan Referrals: Emeka Aburto MD [Partnered Physician] - Khadijah Tsai CNP [Advanced Practice Nurse] - 05/19/19 1:00 pm [facility] Provider[facility] - Prescriptions: Docusate [Colace] 100 mg PO BID 7 Days #14 capsule Prescription Printed OxyCODONE/APAP 5/325 [Percocet 5/325 MG] 1 each PO Q6HR PRN 2 Days #8 tablet PRN Reason: Moderate Pain 4-6 Prescription Printed Sodium Chloride [Sodium Chloride Tab] 1 gm PO BID 7 Days #14 tablet Prescription Printed (1) Fracture, intertrochanteric, right femur Qualifiers: Encounter type: subsequent encounter Fracture type: closed Fracture al ignment: nondisplaced Fracture healing: with routine healing Qualified Code(s): S72.144D - Nondisplaced intertrochanteric fracture of right femur, subsequent encounter for closed fracture with routine healing (4) Anemia Qualifiers: Anemia type: other cause Other causes of anemia: acute posthemorrhagic Qualified Code(s): D62 - Acute posthemorrhagic anemia (5) COPD (chronic obstructive pulmonary disease) Qualifiers: COPD type: unspecified COPD Qualified Code(s): J44.9 - Chronic obstructive pulmonary disease, unspecified (6) Hypertension Qualifiers: Hypertension type: essential hypertension Qualified Code(s): I10 - Essential (primary) hypertension
[2019-05-08] MEDS: *HR* OxyCODONE/APAP 5/325 TABLET PO PRN (18:26)
[2019-05-08] MEDS ORDERED: NON-FORMULARY MEDICATION 1 EACH EACH (Ipratropium/Albuterol Sulfate [Combivent Respimat 20 IH PRN (18:58)
[2019-05-08] MEDS: Budesonide/Formoterol 160/4.5 1 PUFF INH IH SCH (19:53)
[2019-05-09 04:27] LABS: Hematocrit 30.2 % (37.5-50.1)
[2019-05-09 04:29] LABS: Hemoglobin 10.3 g/dL (12.9-16.9)
[2019-05-09 04:47] LABS: BUN/Creatinine Ratio 18 (6-26); Blood Urea Nitrogen 9 mg/dL (8-23); Calcium 8.7 mg/dL (8.6-10.3); Carbon Dioxide 22 mEq/L (23-29); Chloride 101 mEq/L (98-107); Creatine Kinase 145 Units/L (30-223); Glucose 96 mg/dL (70-105); Osmolality,Calculated 275 (280-300); Potassium 3.6 mEq/L (3.5-5.1); Sodium 133 mEq/L (136-145); eGFR For African Americans > 60 (> 60); eGFR For Non-African Americans > 60 (> 60)
--- NOTE | 2019-05-09 08:00 | Internal Med Progress Note ---
Hospitalist Progress Note - Encounter Date of Encounter: 05/09/19 Time of Encounter: 08:35 - Subjective Interval History: awake, resting inbed, no new complaints. cont mild right hip and knee pain with ambulation[facility] results reviewed and plan discussed - Exam Vitals: Temp Pulse Resp BP Pulse Ox 98.9 F 85 18 139/77 95 05/09/19 07:46 05/09/19 07:46 05/09/19 07:46 05/09/19 07:46 05/09/19 07:46 Exam: gen- alert, awake,appears stated age cv- reg rate and rhythm, normal s1,s2 lungs- ctabl, normal resp effort on room air msk- right knee without ecchymosis, or increased warmth , + effusion, non tender to palpation neuro- AAOx3 - Assessment and Plan (1) Fracture, intertrochanteric, right femur Current Visit: Yes Status: Resolved (2) Hyponatremia Current Visit: Yes Status: Acute (3) Elevated creatine kinase level Current Visit: Yes Status: Acute (4) Anemia Current Visit: Yes Status: Acute (5) COPD (chronic obstructive pulmonary disease) Current Visit: Yes Status: Chronic (6) Hypertension Current Visit: Yes Status: Chronic - Summary of Assessment and Plan Summary of Assessment and Plan: [facility] fracture[facility], no pharm vte ppx given anemia, NWB RLE as per ortho, fu w Dr Aburto In setting of hip fx presented with mild Rhabdo- CK down to normal now Acute on Chronic Hyponatremia, suspect SIADH, improved and stable- cont salt tabs, fu with pcp, outpt bmp in fu Pre Operative anemia, chronicity unknown, with acute suspected post operative blood loss anemia hemodynamically stable and asx without overt bleeding -hgb stable post prbc and uptrending, outpt anemia work up with PCP, cbc in follow up Right Knee Pain, suspect sprain/strain with injury Ruled out fracture, has effusion on XR May need outpt r/o of ligamentous injury -prn ice, will update his ortho team to assure no further inpt treatment required [facility]po[facility] 05/10/19 remains medically stable for dc Internal Medicine: Result - Labs CBC & Chem 7: 05/09/19 04:07 05/09/19 04:07 Labs: Short CBC 05/09/19 Range/Units 04:07 Hgb 10.3 L D (12.9-16.9) g/dL Hct 30.2 L (37.5-50.1) % BMP 05/09/19 04:07 Sodium 133 L Potassium 3.6 Chloride 101 Carbon Dioxide 22 L BUN 9 Creatinine 0.50 L Glucose 96 Calcium 8.7 - ABG Interpretation ABG results: PT/INR, D-dimer PT 11.2 Seconds (9.4-12.1) 05/04/19 02:27 - Impressions Impressions Knee X-Ray 05/08/19 20:32 IMPRESSION: Mild soft tissue swelling with a large suprapatellar joint effusion. No acute osseous abnormality. D/ / Lupe Malin MD / Lupe Malin MD Interpreting Provider: Lupe Malin MD Consult Discharge Plan - Plan Referrals: Emeka Aburto MD [Partnered Physician] - Khadijah Tsai CNP [Advanced Practice Nurse] - 05/19/19 1:00 pm [facility] - Prescriptions: Docusate [Colace] 100 mg PO BID 7 Days #14 capsule Prescription Printed OxyCODONE/APAP 5/325 [Percocet 5/325 MG] 1 each PO Q6HR PRN 2 Days #8 tablet PRN Reason: Moderate Pain 4-6 Prescription Printed Sodium Chloride [Sodium Chloride Tab] 1 gm PO BID 7 Days #14 tablet Prescription Printed (1) Fracture, intertrochanteric, right femur Qualifiers: Encounter type: subsequent encounter Fracture type: closed Fracture alignment: nondisplaced Fracture healing: with routine healing Qualified Code(s): S72.144D - Nondisplaced intertrochanteric fracture of right femur, subsequent encounter for closed fracture with routine healing (4) Anemia Qualifiers: Anemia type: other cause Other causes of anemia: acute posthemorrhagic Qualified Code(s): D62 - Acute posthemorrhagic anemia (5) COPD (chronic obstructive pulmonary disease) Qualifiers: COPD type: unspecified COPD Qualified Code(s): J44.9 - Chronic obstructive pulmonary disease, unspecified (6) Hypertension Qualifiers: Hypertension type: essential hypertension Qualified Code(s): I10 - Essential (primary) hypertension
[2019-05-09] MEDS: Loratadine 10 MG TABLET PO SCH (10:27)
[2019-05-09] MEDS: amLODIPine 5 MG TABLET PO SCH (10:27)
[2019-05-09] MEDS: Cholecalciferol (D-3) 1,000 UNIT (25MCG) TABLET PO SCH ×2 (10:27→20:06)
[2019-05-09] MEDS: *HR* OxyCODONE/APAP 5/325 TABLET PO PRN ×2 (10:30→17:53)
[2019-05-09] MEDS: Budesonide/Formoterol 160/4.5 1 PUFF INH IH SCH ×2 (10:52→20:10)
--- NOTE | 2019-05-09 21:11 | Orthopedics Progress Note ---
Date of Encounter: 05/09/19 Time of Encounter: 21:11 Subjective Principal diagnosis: Right hip open reduction internal fixation Interval history: The patient is without complaints. Afebrile vital signs are stable. Incision is clean dry and intact. Neurovascularly intact with regard to bilateral lower extremities. Assessment :stable. Plan mobilize ,continue analgesics, discharge planning. Objective Vital signs: Vital Signs Temp Pulse Resp BP Pulse Ox 05/09/19 20:12 18 93 05/09/19 19:07 98.5 F 93 20 110/63 95 05/09/19 16:54 98.9 F 82 15 126/72 96 05/09/19 12:16 99.4 F 87 17 122/65 86 05/09/19 10:53 18 100 05/09/19 07:46 98.9 F 85 18 139/77 95 05/09/19 03:13 99.3 F 82 16 122/70 99 05/08/19 23:21 98.5 F 81 16 126/69 98 Intake and Output 05/09/19 05/09/19 05/09/19 07:59 15:59 23:59 Intake Total 300 / 1230 690 / 1230 240 / 1230 Output Total 675 / 875 200 / 875 Balance -375 / 355 490 / 355 240 / 355 Intake: Oral 300 / 1230 690 / 1230 240 / 1230 Output: Urine 675 / 875 200 / 875 Other: Meal Breakfast Dinner Percent of Meal Consumed 100% 100% Weight 71.06 kg Patient Weight 05/09/19 23:59 Weight 71.06 kg - Labs CBC & BMP: 05/09/19 04:07 05/09/19 04:07 Labs: Abnormal lab results WBC 12.2 K/mcL (4.3-11.1) H 05/03/19 21:46 RBC 2.47 M/mcL (4.19-5.50) L 05/07/19 04:53 Hgb 10.3 g/dL (12.9-16.9) L D 05/09/19 04:07 Hct 30.2 % (37.5-50.1) L 05/09/19 04:07 MCV 102.5 fL (83.0-100.0) H 05/06/19 09:53 MCH 34.3 pg (28.0-33.3) H 05/06/19 09:53 RDW 14.9 % (11.5-14.5) H 05/07/19 04:53 Plt Count 127 K/mcL (140-400) L 05/03/19 21:46 Neutrophils # 10.0 K/mcL (1.6-8.9) H 05/03/19 21:46 Platelet Estimate Decreased (Normal) L 05/07/19 04:53 Sodium 133 mEq/L (136-145) L 05/09/19 04:07 Chloride 97 mEq/L (98-107) L 05/05/19 06:14 Carbon Dioxide 22 mEq/L (23-29) L 05/09/19 04:07 BUN 7 mg/dL (8-23) L 05/06/19 06:25 Creatinine 0.50 mg/dL (0.70-1.30) L 05/09/19 04:07 Glucose 107 mg/dL (70-105) H 05/07/19 04:53 POC Glucose 104 mg/dL (70-99) H 05/04/19 03:28 Calculated Osmolality 275 (280-300) L 05/09/19 04:07 Calcium 8.5 mg/dL (8.6-10.3) L 05/07/19 04:53 Magnesium 1.5 mg/dL (1.6-2.6) L 05/04/19 02:27 Alkaline Phosphatase 109 Units/L (34-104) H 05/03/19 21:46 Creatine Kinase 347 Units/L (30-223) H 05/07/19 10:51 B-Natriuretic Peptide 108 pg/mL (Less than 100) H 05/04/19 02:27 Serum Total Protein 5.8 g/dL (6.4-8.9) L 05/04/19 02:27 Globulin 2.2 g/dL (2.4-3.5) L 05/04/19 02:27 Ur Specific [place] >= 1.030 (1.010-1.025) H 05/03/19 21:53 Urine Protein 30 mg/dL (Neg-Trace) H 05/03/19 21:53 Urine Ketones 40 mg/dL (Negative) H 05/03/19 21:53 Urine Microscopic RBC 5-15 per hpf (0-3) H 05/03/19 21:53 Ur Squamous Epith Cells Many per lpf (None-Few) H 05/03/19 21:53 Crossmatch See Detail 05/06/19 17:39 Consult Discharge Plan - Plan Referrals: Emeka Aburto MD [Partnered Physician] - Khadijah Tsai CNP [Advanced Practice Nurse] - 05/19/19 1:00 pm [facility] - Prescriptions: Docusate [Colace] 100 mg PO BID 7 Days #14 capsule Prescription Printed OxyCODONE/APAP 5/325 [Percocet 5/325 MG] 1 each PO Q6HR PRN 2 Days #8 tablet PRN Reason: Moderate Pain 4-6 Prescription Printed Sodium Chloride [Sodium Chloride Tab] 1 gm PO BID 7 Days #14 tablet Prescription Printed
--- NOTE | 2019-05-10 06:42 | Orthopedics Progress Note ---
Date of Encounter: 05/10/19 Time of Encounter: 06:41 Subjective Principal diagnosis: Right hip open reduction internal fixation Interval history: Patient was seen this morning doing well without complaints. Afebrile vital signs stable. Operative extremity: Neurovascularly intact Dressing clean dry and intact Calves nontender Assessment and plan: Continue with postoperative care . Patient with new onset right knee swelling, pain with motion, we will have knee aspirated today. Objective Vital signs: Vital Signs Temp Pulse Resp BP Pulse Ox 05/10/19 05:35 98.3 F 83 20 135/73 100 05/10/19 00:57 98.8 F 83 20 130/59 96 05/09/19 20:13 95 05/09/19 20:12 18 93 05/09/19 19:07 98.5 F 93 20 110/63 95 05/09/19 16:54 98.9 F 82 15 126/72 96 05/09/19 12:16 99.4 F 87 17 122/65 86 05/09/19 10:53 18 100 05/09/19 07:46 98.9 F 85 18 139/77 95 Intake and Output 05/09/19 05/09/19 05/10/19 15:59 23:59 07:59 Intake Total 690 / 1230 240 / 1230 650 / 650 Output Total 200 / 875 200 / 200 Balance 490 / 355 240 / 355 450 / 450 Intake: Oral 690 / 1230 240 / 1230 650 / 650 Output: Urine 200 / 875 200 / 200 Other: Meal Breakfast Dinner Percent of Meal Consumed 100% 100% Weight 71.07 kg Patient Weight 05/10/19 23:59 Weight 71.07 kg - Labs CBC & BMP: 05/09/19 04:07 05/09/19 04:07 Labs: Abnormal lab results WBC 12.2 K/mcL (4.3-11.1) H 05/03/19 21:46 RBC 2.47 M/mcL (4.19-5.50) L 05/07/19 04:53 Hgb 10.3 g/dL (12.9-16.9) L D 05/09/19 04:07 Hct 30.2 % (37.5-50.1) L 05/09/19 04:07 MCV 102.5 fL (83.0-100.0) H 05/06/19 09:53 MCH 34.3 pg (28.0-33.3) H 05/06/19 09:53 RDW 14.9 % (11.5-14.5) H 05/07/19 04:53 Plt Count 127 K/mcL (140-400) L 05/03/19 21:46 Neutrophils # 10.0 K/mcL (1.6-8.9) H 05/03/19 21:46 Platelet Estimate Decreased (Normal) L 05/07/19 04:53 Sodium 133 mEq/L (136-145) L 05/09/19 04:07 Chloride 97 mEq/L (98-107) L 05/05/19 06:14 Carbon Dioxide 22 mEq/L (23-29) L 05/09/19 04:07 BUN 7 mg/dL (8-23) L 05/06/19 06:25 Creatinine 0.50 mg/dL (0.70-1.30) L 05/09/19 04:07 Glucose 107 mg/dL (70-105) H 05/07/19 04:53 POC Glucose 104 mg/dL (70-99) H 05/04/19 03:28 Calculated Osmolality 275 (280-300) L 05/09/19 04:07 Calcium 8.5 mg/dL (8.6-10.3) L 05/07/19 04:53 Magnesium 1.5 mg/dL (1.6-2.6) L 05/04/19 02:27 Alkaline Phosphatase 109 Units/L (34-104) H 05/03/19 21:46 Creatine Kinase 347 Units/L (30-223) H 05/07/19 10:51 B-Natriuretic Peptide 108 pg/mL (Less than 100) H 05/04/19 02:27 Serum Total Protein 5.8 g/dL (6.4-8.9) L 05/04/19 02:27 Globulin 2.2 g/dL (2.4-3.5) L 05/04/19 02:27 Ur Specific [place] >= 1.030 (1.010-1.025) H 05/03/19 21:53 Urine Protein 30 mg/dL (Neg-Trace) H 05/03/19 21:53 Urine Ketones 40 mg/dL (Negative) H 05/03/19 21:53 Urine Microscopic RBC 5-15 per hpf (0-3) H 05/03/19 21:53 Ur Squamous Epith Cells Many per lpf (None-Few) H 05/03/19 21:53 Crossmatch See Detail 05/06/19 17:39 Consult Discharge Plan - Plan Referrals: Emeka Aburto MD [Partnered Physician] - Khadijah Tsai CNP [Advanced Practice Nurse] - 05/19/19 1:00 pm [facility] - Prescriptions: Docusate [Colace] 100 mg PO BID 7 Days #14 capsule Prescription Printed OxyCODONE/APAP 5/325 [Percocet 5/325 MG] 1 each PO Q6HR PRN 2 Days #8 tablet PRN Reason: Moderate Pain 4-6 Prescription Printed Sodium Chloride [Sodium Chloride Tab] 1 gm PO BID 7 Days #14 tablet Prescription Printed
[2019-05-10 06:45] VITALS: BP 125/66
[2019-05-10] MEDS: Budesonide/Formoterol 160/4.5 1 PUFF INH IH SCH (07:52)
--- NOTE | 2019-05-10 09:17 | Internal Med Progress Note ---
Hospitalist Progress Note - Encounter Date of Encounter: 05/10/19 Time of Encounter: 09:00 - Subjective Interval History: awake, ortho at bedside aspirating knee. he is discharging to [facility] this morning. cont to eat and drink without difficulty, work with PT, has no cp, sob fevers or chills. ortho discussed plan outpt for knee which includes follow up of cx and crystal studies that will be sent, rest and elevation, but cautioned pt that given his k nee arthritis history this may exacerbate again and that IR US guided knee aspiration at [facility] would be possible if recurs during his rehab time. He will follow up with ortho as scheduled. - Exam Vitals: Temp Pulse Resp BP Pulse Ox 98.4 F 94 18 125/66 94 05/10/19 06:42 05/10/19 06:42 05/10/19 07:52 05/10/19 06:42 05/10/19 07:52 Exam: gen- alert, awake,appears stated age cv- reg rate and rhythm, normal s1,s2, no pitting le edema lungs- ctabl, normal resp effort on room air msk- right knee without ecchymosis, or increased warmth , + effusion, clear straw colored aspirate visualized with improved effusion, pain with rom skin- left heel small bleeding open blister neuro- AAOx3 - Assessment and Plan (1) Fracture, intertrochanteric, right femur Current Visit: Yes Status: Resolved (2) Hyponatremia Current Visit: Yes Status: Acute (3) Elevated creatine kinase level Current Visit: Yes Status: Resolved (4) Anemia Current Visit: Yes Status: Acute (5) COPD (chronic obstructive pulmonary disease) Current Visit: Yes Status: Chronic (6) Hypertension Current Visit: Yes Status: Chronic (7) Knee effusion, right Current Visit: Yes Status: Acute - Summary of Assessment and Plan Summary of Assessment and Plan: Right hip fracture- [facility] for [facility], no bed until Friday, no pharm vte ppx given anemia, NWB RLE as per ortho, john w Dr Aburto In setting of hip fx presented with mild Rhabdo- CK down to normal now Acute on Chronic Hyponatremia, suspect SIADH, improved and stable- cont salt tabs, fu with pcp, outpt bmp in fu Pre Operative anemia, chronicity unknown, with acute suspected post operative blood loss anemia hemodynamically stable and asx without overt bleeding -hgb stable post prbc and uptrending, outpt anemia work up with PCP, cbc in follow up Right Knee Pain, suspect sprain/strain with injury and Chronic Right Knee Arthritis Ruled out fracture, has effusion on XR s/p R knee aspiration y ortho 05/10/19 -prn ice, will update his ortho team to assure no further inpt treatment requiredplan as d/w ortho is ice and elevation, sending cx and crystal studies that ortho will fu outpt, may reoccur given history and if so [facility] guided [facility] to remove more fluid dispo- [facility] 05/10/19 remains medically stable for dc Internal Medicine: Result - Labs CBC & Chem 7: 05/09/19 04:07 05/09/19 04:07 - ABG Interpretation ABG results: PT/INR, D-dimer PT 11.2 Seconds (9.4-12.1) 05/04/19 02:27 Consult Discharge Plan - Plan Referrals: Emeka Aburto MD [Partnered Physician] - Khadijah Tsai CNP [Advanced Practice Nurse] - 05/19/19 1:00 pm [facility] - Prescriptions: Docusate [Colace] 100 mg PO BID 7 Days #14 capsule Prescription Printed OxyCODONE/APAP 5/325 [Percocet 5/325 MG] 1 each PO Q6HR PRN 2 Days #8 tablet PRN Reason: Moderate Pain 4-6 Prescription Printed Sodium Chloride [Sodium Chloride Tab] 1 gm PO BID 7 Days #14 tablet Prescription Printed (1) Fracture, intertrochanteric, right femur Qualifiers: Encounter type: subsequent encounter Fracture type: closed Fracture alignment: nondisplaced Fracture healing: with routine healing Qualified Code(s): S72.144D - Nondisplaced intertrochanteric fracture of right femur, subsequent encounter for closed fracture with routine healing (4) Anemia Qualifiers: Anemia type: other cause Other causes of anemia: acute posthemorrhagic Qualified Code(s): D62 - Acute posthemorrhagic anemia (5) COPD (chronic obstructive pulmonary disease) Qualifiers: COPD type: unspecified COPD Qualified Code(s): J44.9 - Chronic obstructive pulmonary disease, unspecified (6) Hypertension Qualifiers: Hypertension type: essential hypertension Qualified Code(s): I10 - Essential (primary) hypertension
[2019-05-10] MEDS: Loratadine 10 MG TABLET PO SCH (09:27)
[2019-05-10] MEDS: *HR* OxyCODONE Immed Rel 5 MG TABLET PO PRN (09:27)
[2019-05-10] MEDS: Cholecalciferol (D-3) 1,000 UNIT (25MCG) TABLET PO SCH (09:27)
[2019-05-10] MEDS: amLODIPine 5 MG TABLET PO SCH (09:27)
--- NOTE | 2019-05-10 09:27 | Event Note ---
Date of Encounter: 05/10/19 Time of Encounter: 09:27 POD#5 s/p Right hip open reduction intramedullary nail fixation [Right hip fracture] 05/05/19 Patient seen at bedside. Patient developed right knee effusion, painful, making transfers difficult. Patient states painful to move the knee. Patient with history of scleroderma, Raynauds, NORMA (centromere) positivity, HTN, seizures, smoking, COPD. He relates he has had the knee injected by Dr. Santamaria Jul 2018 for pain and swelling and states "fluid poured out of it", though denies that he aspirated it. Review of records reveals this was done for pain/swelling related to OA and patient did not have pain relief with steroid injection. A&Ox3 Dressing and incision c/d/i No calf tenderness, erythema, or warmth. Right knee with moderate effusion. No erythema or warmth noted. Patient admits to excruciating pain to the right knee. Motion is limited secondary to pain to appx 20-100deg with assistance. Neurovascularly intact b/l LE. Ruptured blister with bleeding noted to left lateral heel measuring appx 3cm along lateral heel from anterior to posterior and appx 1.5cm from medial to lateral. No erythema noted. Labwork, vitals, and medications reviewed. Pain control: Adequate Participating in therapy. All questions and concerns addressed. Educated on use of incentive spirometer, ambulation, and hydration. Patient educated on post-operative restrictions and care. Right knee effusion/aspiration: Patient with right knee effusion with known history of osteoarthritis. Explained to patient procedure of aspiration including risks and benefits and patient agreed to proceed. Verbal consent winessed by Manav ALVARADO who was present for entirety of procedure. Area was prepped with alcohol followed by betadine and medial joint line attempted aspiration unsuccessful. Patient again gave verbal consent for reattempt. Lateral joint line again prepped in sterile fashion and using 22 x1 1/2 needle joint was successfully aspirated revealing appx 12cc normal appearing yellow synovial fluid with no sediment or thickened viscosity. Will send for cell counts, crystals, and cultures given patient's history of rheumatologic comorbidities. Addressed: NONWEIGHTBEARING TO OPERATIVE EXTREMITY. AVOID EXCESSIVE HIP MOTION. LEAVE DRESSING IN PLACE. Opsite placed. Keep dressing intact until first follow up appointment. If greater than 50% saturated, notify office, remove dressing and place appropriate dressing back in place. Leave Zipline intact. Opsite dressing is water resistant, not water-proof. OK to shower, but do not get dressing wet. Left heel: daily washes with soap and water. Apply nonadherent absorbent dressing, then ABD for cushion and wrap with Kerlix. Patient course and disposition discussed with Dr. Aburto and Hospitalist. D/C plan[facility]
[2019-05-10 09:36] LABS: Source,Synovial Fluid right knee
[2019-05-10 12:05] LABS: Appearance,Synovial Fluid Cloudy (Clear-Hazy); Color,Synovial Fluid Straw (Straw)
== END 2019-05-10 11:10 | DRG 308 ==
LOC: EMEROOARM 21:24 → 3NENU 21:24 → OBSVTOIN 23:58 → SUATTDRO 23:58 → 3NENU 05-04 01:04
PROVIDERS: ADMIT Internal Medicine; ATTEND Internal Medicine

== ENCOUNTER 2019-05-19 10:48 | Inpatient (IN) ==
[2019-05-19] MEDS ORDERED: Isovue-370 500 ML BOTTLE IVP ONE (11:10)
[2019-05-19 11:28] LABS: Eosinophils # 0.2 K/mcL (0.0-0.6); Hemoglobin 9.6 g/dL (12.9-16.9); Immature Platelets 3.1 % (1.1-6.1); Mean Platelet Volume 9.3 fL (9.4-12.4); Nucleated Red Blood Cells 0.1 /100 WBC (0); Red Cell Distribution Width 13.6 % (11.5-14.5); White Blood Count 21.1 K/mcL (4.3-11.1)
[2019-05-19 11:33] LABS: INR 1.2; Prothrombin Time 13.5 Seconds (9.4-12.1)
[2019-05-19 11:36] LABS: Activated Partial Thrombo Time 65.9 Seconds (26.0-36.0)
[2019-05-19] MEDS: FentaNYL (PF) 1,000 MCG in 0.9 % Sodium Chloride 80 ML IVC SCH ×2 (11:37→21:16)
[2019-05-19 11:43] LABS: VBG HCO3 13 mEq/L (21-27); VBG PCO2 44 mmHg (41-51); VBG PH 7.09 pH Units (7.32-7.42); VBG PO2 121 mmHg (25-50)
[2019-05-19 11:48] LABS: ABG Base Excess -12 mEq/L (-2 to 3); ABG HCO3 18 mEq/L (21-27); ABG Oxygen Saturation 95 % (95-98); ABG PCO2 61 mmHg (35-45); ABG PH 7.08 pH Units (7.32-7.45); ABG PO2 109 mmHg (85-104); ABG TCO2 20 mEq/L (20-26); Blood Gas Modality ASSIST CONTROL; Blood Gas VT 480 cc
[2019-05-19] MEDS ORDERED: Piperacillin/Tazobactam 3.375 GM in 0.9 % Sodium Chloride Mini Bag 100 ML IVPB ONE (11:55)
[2019-05-19 11:59] LABS: Platelet Count 71 K/mcL (140-400)
[2019-05-19 12:01] LABS: BUN/Creatinine Ratio 17 (6-26); Blood Urea Nitrogen 15 mg/dL (8-23); Calcium 8.2 mg/dL (8.6-10.3); Carbon Dioxide 15 mEq/L (23-29); Chloride 98 mEq/L (98-107); Glucose 253 mg/dL (70-105); Osmolality,Calculated 267 (280-300); Potassium 4.4 mEq/L (3.5-5.1); Sodium 124 mEq/L (136-145); Thyroid Stimulating Hormone 6.586 mcIU/mL (0.340-5.600); Troponin I 0.18 ng/mL (< 0.04); eGFR For African Americans > 60 (> 60); eGFR For Non-African Americans > 60 (> 60)
[2019-05-19 12:04] LABS: Lymphocytes # 6.5 K/mcL (0.6-4.6); Monocytes # 0.6 K/mcL (0.0-1.3); Neutrophils # 12.7 K/mcL (1.6-8.9); Platelet Estimate Decreased (Normal)
[2019-05-19 12:05] LABS: Poikilocytosis 1+ (Not Present)
[2019-05-19] MEDS ORDERED: *HR* Vecuronium 10 MG VIAL ONE (12:10)
[2019-05-19] MEDS ORDERED: *HR* Vecuronium 10 MG VIAL IVP ONE (12:21)
[2019-05-19] MEDS ORDERED: Hydrocortisone Sodium Succ 100 MG/2 ML VIAL IVP ONE (12:58)
[2019-05-19] MEDS ORDERED: Artificial Tears SOLN 15 ML BOTTLE BOTH EYES PRN (14:18)
[2019-05-19 14:59] LABS: ABG Base Excess -5 mEq/L (-2 to 3); ABG HCO3 22 mEq/L (21-27); ABG Oxygen Saturation 100 % (95-98); ABG PCO2 50 mmHg (35-45); ABG PH 7.26 pH Units (7.32-7.45); ABG PO2 223 mmHg (85-104); ABG TCO2 24 mEq/L (20-26); Blood Gas VT 480 cc
[2019-05-19] MEDS: Norepinephrine 4 MG in 0.9 % Sodium Chloride 250 ML IVC SCH (15:30)
[2019-05-19] MEDS ORDERED: *HR* Heparin 5,000 UNIT/ML VIAL SQ SCH (15:30)
[2019-05-19 15:39] LABS: Eosinophils % 0.1 %; Hemoglobin 9.2 g/dL (12.9-16.9)
[2019-05-19 15:40] LABS: Basophils % 0.3 %; Immature Granulocytes % 0.8 % (0-4); Immature Platelets 4.4 % (1.1-6.1); Lymphocytes # 0.6 K/mcL (0.6-4.6); Lymphocytes % 3.9 %; Mean Corpuscular HGB Conc 32.9 g/dL (31.6-35.5); Mean Corpuscular Hemoglobin 31.7 pg (28.0-33.3); Mean Corpuscular Volume 96.6 fL (83.0-100.0); Mean Platelet Volume 9.3 fL (9.4-12.4); Monocytes # 1.4 K/mcL (0.0-1.3); Monocytes % 9.8 %; Neutrophils # 12.4 K/mcL (1.6-8.9); Red Cell Distribution Width 13.4 % (11.5-14.5); Segmented Neutrophils % 85.1 %; White Blood Count 14.6 K/mcL (4.3-11.1)
[2019-05-19 15:42] LABS: Platelet Count 69 K/mcL (140-400)
[2019-05-19] MEDS ORDERED: *HR* Heparin 5,000 UNIT/ML VIAL IVP PRN ×2 (15:43)
[2019-05-19] MEDS ORDERED: *HR* Heparin 5,000 UNIT/ML VIAL IVP ONE (15:43)
[2019-05-19] MEDS ORDERED: Heparin 25,000 UNIT/250 ML D5W 25,000 UNIT/250 ML IV.SOLN IVC SCH (15:45)
[2019-05-19 15:46] LABS: INR 1.1; Prothrombin Time 12.9 Seconds (9.4-12.1)
[2019-05-19 15:59] LABS: BUN/Creatinine Ratio 21 (6-26); Blood Urea Nitrogen 20 mg/dL (8-23); Carbon Dioxide 21 mEq/L (23-29); Chloride 97 mEq/L (98-107); Glucose 95 mg/dL (70-105); Magnesium 2.1 mg/dL (1.6-2.6); Osmolality,Calculated 266 (280-300); Phosphorous 6.8 mg/dL (2.7-4.5); Potassium 4.5 mEq/L (3.5-5.1); Sodium 127 mEq/L (136-145); eGFR For African Americans > 60 (> 60); eGFR For Non-African Americans > 60 (> 60)
[2019-05-19 16:04] LABS: Troponin I 0.37 ng/mL (< 0.04)
[2019-05-19 16:07] LABS: Dohle Bodies Present (Not Present)
[2019-05-19 16:08] LABS: Platelet Estimate Decreased (Normal)
[2019-05-19] MEDS: Artificial Tears SOLN 15 ML BOTTLE BOTH EYES SCH ×3 (16:39→23:24)
[2019-05-19] MEDS: Chlorhexidine Rinse 15 ML MOUTHWASH MM SCH ×2 (16:41→20:41)
[2019-05-19] MEDS: Pantoprazole 40 MG VIAL IVP SCH (16:41)
[2019-05-19 17:34] LABS: Bilirubin,Urine Negative (Negative); Blood,Urine Moderate (Negative); Clarity,Urine Turbid (Clear); Color,Urine Yellow (Yellow); Glucose,Urine (UA) Normal (Normal); Ketones,Urine Negative (Negative); Leukocyte Esterase,Urine Negative (Negative); Nitrite,Urine Negative (Negative); Protein,Urine 30 mg/dL (Neg-Trace); Specific Gravity,Urine 1.026 (1.010-1.025); Urobilinogen,Urine Normal (Normal)
[2019-05-19 17:36] LABS: Bacteria,Urine None Seen per hpf (None-Few); Hyaline Casts,Urine None Seen per lpf (None-Few); Squamous Epithelial Cell,Urine Many per lpf (None-Few); WBC,Urine 30-50 per hpf (0-3)
[2019-05-19] MEDS: Pantoprazole 40 MG in 0.9 % Sodium Chloride Mini Bag 100 ML IVC SCH ×2 (17:51→21:28)
[2019-05-19] MEDS: Acetaminophen 325 MG TABLET PO SCH ×2 (17:53→23:21)
[2019-05-19] MEDS: Hydrocortisone Sodium Succ 100 MG/2 ML VIAL IVP SCH ×2 (18:14→23:24)
[2019-05-19 18:15] LABS: RBC,Urine 0-3 per hpf (0-3)
[2019-05-19] MEDS ORDERED: Perflutren Lipid Microsphere 1.3 ML in 0.9 % Sodium Chloride 8.7 ML IVP ONE (18:34)
[2019-05-19 22:16] LABS: Hemoglobin 8.5 g/dL (12.9-16.9)
[2019-05-19] MEDS: Piperacillin/Tazobactam 3.375 GM in 0.9 % Sodium Chloride Mini Bag 100 ML IVPB SCH (23:23)
[2019-05-20] MEDS: Norepinephrine 4 MG in 0.9 % Sodium Chloride 250 ML IVC SCH ×3 (01:00→19:20)
[2019-05-20] MEDS: Pantoprazole 40 MG in 0.9 % Sodium Chloride Mini Bag 100 ML IVC SCH ×2 (03:02→08:51)
[2019-05-20] MEDS: Artificial Tears SOLN 15 ML BOTTLE BOTH EYES SCH ×6 (03:49→23:08)
[2019-05-20 04:24] LABS: Basophils % 0.1 %; Immature Granulocytes % 0.6 % (0-4); Monocytes % 8.8 %
[2019-05-20 04:26] LABS: Hematocrit 23.1 % (37.5-50.1); Hemoglobin 7.9 g/dL (12.9-16.9); Immature Platelets 6.2 % (1.1-6.1); Lymphocytes # 1.3 K/mcL (0.6-4.6); Lymphocytes % 7.8 %; Mean Corpuscular HGB Conc 34.2 g/dL (31.6-35.5); Mean Corpuscular Hemoglobin 32.4 pg (28.0-33.3); Mean Corpuscular Volume 94.7 fL (83.0-100.0); Mean Platelet Volume 10.2 fL (9.4-12.4); Monocytes # 1.5 K/mcL (0.0-1.3); Neutrophils # 14.1 K/mcL (1.6-8.9); Red Blood Count 2.44 M/mcL (4.19-5.50); Red Cell Distribution Width 13.5 % (11.5-14.5); Segmented Neutrophils % 82.7 %
[2019-05-20 04:30] LABS: Platelet Count 84 K/mcL (140-400)
[2019-05-20 04:41] LABS: ABG Base Excess -4 mEq/L (-2 to 3); ABG HCO3 22 mEq/L (21-27); ABG Oxygen Saturation 97 % (95-98); ABG PCO2 41 mmHg (35-45); ABG PH 7.33 pH Units (7.32-7.45); ABG PO2 98 mmHg (85-104); ABG TCO2 23 mEq/L (20-26); Blood Gas Modality ASSIST CONTROL; Blood Gas VT 480 cc
[2019-05-20] MEDS: Acetaminophen 325 MG TABLET PO SCH ×6 (05:04→23:23)
[2019-05-20] MEDS: Hydrocortisone Sodium Succ 100 MG/2 ML VIAL IVP SCH ×4 (05:06→23:08)
[2019-05-20 05:20] LABS: BUN/Creatinine Ratio 27 (6-26); Blood Urea Nitrogen 25 mg/dL (8-23); Carbon Dioxide 18 mEq/L (23-29); Chloride 100 mEq/L (98-107); Glucose 119 mg/dL (70-105); Osmolality,Calculated 272 (280-300); Potassium 4.9 mEq/L (3.5-5.1); Sodium 128 mEq/L (136-145); eGFR For African Americans > 60 (> 60); eGFR For Non-African Americans > 60 (> 60)
[2019-05-20 05:38] LABS: Troponin I 0.17 ng/mL (< 0.04)
[2019-05-20] MEDS: FentaNYL (PF) 1,000 MCG in 0.9 % Sodium Chloride 80 ML IVC SCH ×2 (07:38→19:19)
[2019-05-20] MEDS: Piperacillin/Tazobactam 3.375 GM in 0.9 % Sodium Chloride Mini Bag 100 ML IVPB SCH ×3 (08:52→23:09)
[2019-05-20] MEDS: Chlorhexidine Rinse 15 ML MOUTHWASH MM SCH ×2 (08:56→20:21)
[2019-05-20 10:20] LABS: Hemoglobin 7.5 g/dL (12.9-16.9)
[2019-05-20] MEDS ORDERED: Valproic Acid INJ 1,000 MG in 0.9 % Sodium Chloride 100 ML IVPB ONE (10:49)
[2019-05-20] MEDS ORDERED: *HR* LORazepam 2 MG/ML VIAL IVP PRN (10:59)
[2019-05-20] MEDS ORDERED: *HR* Dextrose 50 % in Water (Syg) 50 ML SYRINGE IVP PRN (11:38)
[2019-05-20] MEDS ORDERED: Dextrose Gel 15 GM/37.5 ML TUBE PO PRN ×2 (11:38)
[2019-05-20] MEDS ORDERED: D5% in Water 1,000 ML IVC PRN (11:38)
[2019-05-20] MEDS ORDERED: levETIRAcetam 1,000 MG in 0.9 % Sodium Chloride 100 ML IVPB ONE (15:12)
[2019-05-20 17:59] LABS: Hematocrit 22.1 % (37.5-50.1); Hemoglobin 7.3 g/dL (12.9-16.9)
[2019-05-20] MEDS: Pantoprazole 40 MG VIAL IVP SCH (18:16)
[2019-05-20 22:06] LABS: Hematocrit 22.5 % (37.5-50.1); Hemoglobin 7.3 g/dL (12.9-16.9)
[2019-05-21] MEDS: Artificial Tears SOLN 15 ML BOTTLE BOTH EYES SCH ×6 (03:07→23:01)
[2019-05-21 03:12] LABS: Basophils # 0.1 K/mcL (0.0-0.2); Basophils % 0.6 %; Eosinophils % 0.1 %; Hematocrit 22.8 % (37.5-50.1); Hemoglobin 7.3 g/dL (12.9-16.9); Immature Granulocytes % 0.5 % (0-4); Lymphocytes % 9.4 %; Mean Platelet Volume 10.4 fL (9.4-12.4); Monocytes # 0.9 K/mcL (0.0-1.3); Monocytes % 8.8 %; Neutrophils # 8.6 K/mcL (1.6-8.9); Platelet Count 119 K/mcL (140-400); Red Blood Count 2.28 M/mcL (4.19-5.50); Red Cell Distribution Width 13.7 % (11.5-14.5); Segmented Neutrophils % 80.6 %; White Blood Count 10.7 K/mcL (4.3-11.1)
[2019-05-21 04:16] LABS: BUN/Creatinine Ratio 24 (6-26); Blood Urea Nitrogen 18 mg/dL (8-23); Calcium 8.6 mg/dL (8.6-10.3); Carbon Dioxide 22 mEq/L (23-29); Chloride 110 mEq/L (98-107); Glucose 112 mg/dL (70-105); Magnesium 2.4 mg/dL (1.6-2.6); Osmolality,Calculated 291 (280-300); Phosphorous 2.8 mg/dL (2.7-4.5); Potassium 4.3 mEq/L (3.5-5.1); Sodium 139 mEq/L (136-145); Triiodothyronine (T3) Total 0.61 ng/mL (0.87-1.78); eGFR For African Americans > 60 (> 60); eGFR For Non-African Americans > 60 (> 60)
[2019-05-21 04:41] LABS: ABG Base Excess -1 mEq/L (-2 to 3); ABG HCO3 24 mEq/L (21-27); ABG Oxygen Saturation 97 % (95-98); ABG PCO2 43 mmHg (35-45); ABG PH 7.36 pH Units (7.32-7.45); ABG PO2 91 mmHg (85-104); ABG TCO2 26 mEq/L (20-26); Blood Gas Modality ASSIST CONTROL; Blood Gas VT 480 cc
[2019-05-21] MEDS: Hydrocortisone Sodium Succ 100 MG/2 ML VIAL IVP SCH (05:00)
[2019-05-21] MEDS: Pantoprazole 40 MG VIAL IVP SCH ×2 (05:01→18:11)
[2019-05-21] MEDS: Valproic Acid INJ 500 MG in 0.9 % Sodium Chloride 100 ML IVPB SCH ×2 (05:01→18:23)
[2019-05-21] MEDS: Chlorhexidine Rinse 15 ML MOUTHWASH MM SCH ×2 (08:20→20:02)
[2019-05-21] MEDS: Piperacillin/Tazobactam 3.375 GM in 0.9 % Sodium Chloride Mini Bag 100 ML IVPB SCH ×3 (08:21→23:03)
[2019-05-21] MEDS ORDERED: clonazePAM 1 MG TABLET PO PRN (08:34)
[2019-05-21] MEDS ORDERED: Valproic Acid INJ 500 MG in 0.9 % Sodium Chloride 100 ML IVPB SCH (09:00)
[2019-05-21] MEDS: FentaNYL (PF) 1,000 MCG in 0.9 % Sodium Chloride 80 ML IVC SCH (09:52)
[2019-05-21] MEDS ORDERED: Aminoglycoside Consult 1 EACH MC ONE (10:54)
[2019-05-21] MEDS ORDERED: 0.9 % Sodium Chloride 250 ML ONE (11:27)
[2019-05-21] MEDS: Acetaminophen 325 MG TABLET PO SCH (12:27)
[2019-05-21] MEDS ORDERED: Hydrocortisone Sodium Succ 100 MG/2 ML VIAL IVP ONE (18:00)
[2019-05-22] MEDS: Artificial Tears SOLN 15 ML BOTTLE BOTH EYES SCH ×6 (03:02→20:20)
[2019-05-22 03:19] LABS: Basophils # 0.1 K/mcL (0.0-0.2); Basophils % 0.8 %; Eosinophils # 0.1 K/mcL (0.0-0.6); Eosinophils % 0.8 %; Hematocrit 24.4 % (37.5-50.1); Hemoglobin 7.8 g/dL (12.9-16.9); Immature Granulocytes % 0.5 % (0-4); Lymphocytes % 22.8 %; Mean Corpuscular Hemoglobin 31.7 pg (28.0-33.3); Mean Corpuscular Volume 99.2 fL (83.0-100.0); Mean Platelet Volume 9.8 fL (9.4-12.4); Monocytes # 0.8 K/mcL (0.0-1.3); Monocytes % 9.3 %; Neutrophils # 5.7 K/mcL (1.6-8.9); Platelet Count 158 K/mcL (140-400); Red Blood Count 2.46 M/mcL (4.19-5.50); Red Cell Distribution Width 14.5 % (11.5-14.5); Segmented Neutrophils % 65.8 %; White Blood Count 8.7 K/mcL (4.3-11.1)
[2019-05-22 03:29] LABS: BUN/Creatinine Ratio 24 (6-26); Blood Urea Nitrogen 16 mg/dL (8-23); Calcium 8.7 mg/dL (8.6-10.3); Carbon Dioxide 25 mEq/L (23-29); Chloride 114 mEq/L (98-107); Glucose 93 mg/dL (70-105); Magnesium 2.2 mg/dL (1.6-2.6); Osmolality,Calculated 293 (280-300); Phosphorous 2.7 mg/dL (2.7-4.5); Potassium 3.9 mEq/L (3.5-5.1); Sodium 141 mEq/L (136-145); eGFR For African Americans > 60 (> 60); eGFR For Non-African Americans > 60 (> 60)
[2019-05-22] MEDS: Valproic Acid INJ 500 MG in 0.9 % Sodium Chloride 100 ML IVPB SCH ×2 (05:05→16:38)
[2019-05-22] MEDS: Pantoprazole 40 MG VIAL IVP SCH ×2 (05:09→06:01)
[2019-05-22 05:23] LABS: ABG Base Excess 0 mEq/L (-2 to 3); ABG HCO3 25 mEq/L (21-27); ABG Oxygen Saturation 94 % (95-98); ABG PCO2 41 mmHg (35-45); ABG PO2 72 mmHg (85-104); ABG TCO2 27 mEq/L (20-26); Blood Gas VT 480 cc
[2019-05-22] MEDS: Piperacillin/Tazobactam 3.375 GM in 0.9 % Sodium Chloride Mini Bag 100 ML IVPB SCH (06:57)
[2019-05-22] MEDS: Chlorhexidine Rinse 15 ML MOUTHWASH MM SCH (07:12)
[2019-05-22] MEDS ORDERED: Aspirin 81 MG TAB.CHEW PO SCH (09:00)
[2019-05-22] MEDS ORDERED: Hydrocortisone Sodium Succ 100 MG/2 ML VIAL IVP ONE (09:00)
[2019-05-22] MEDS: FentaNYL (PF) 1,000 MCG in 0.9 % Sodium Chloride 80 ML IVC SCH (10:36)
[2019-05-22] MEDS ORDERED: Glycopyrrolate 0.2 MG/ML VIAL IVP ONE (12:07)
[2019-05-22] MEDS ORDERED: *HR* LORazepam 2 MG/ML VIAL IVP PRN ×2 (12:07→13:31)
[2019-05-22] MEDS ORDERED: Atropine Sulfate 1% 40 DROP/2 ML BOTTLE SL PRN (12:08)
[2019-05-22] MEDS ORDERED: Glycopyrrolate 0.2 MG/ML VIAL ONE (12:11)
[2019-05-22] MEDS ORDERED: *HR* LORazepam 2 MG/ML VIAL ONE (12:11)
[2019-05-23] MEDS: FentaNYL (PF) 1,000 MCG in 0.9 % Sodium Chloride 80 ML IVC SCH (04:55)
[2019-05-23] MEDS: Valproic Acid INJ 500 MG in 0.9 % Sodium Chloride 100 ML IVPB SCH (05:07)
[2019-05-23] MEDS: Artificial Tears SOLN 15 ML BOTTLE BOTH EYES SCH (06:51)
[2019-05-23 07:05] VITALS: BP 139/77
[2019-05-23] MEDS ORDERED: *HR* LORazepam 2 MG/ML VIAL IVP PRN (09:28)
[2019-05-23] MEDS ORDERED: FentaNYL (PF) 1,000 MCG in 0.9 % Sodium Chloride 80 ML IVC SCH (09:28)
[2019-05-23] MEDS ORDERED: *HR* FentaNYL (PF) 100 MCG/2 ML VIAL IVP PRN (09:28)
[2019-05-23] MEDS ORDERED: Atropine Sulfate 1% 40 DROP/2 ML BOTTLE SL PRN (09:28)
[2019-05-23] MEDS ORDERED: Valproic Acid INJ 500 MG in 0.9 % Sodium Chloride 100 ML IVPB SCH (18:00)
== END 2019-05-23 10:55 | disposition expired | DRG 296 ==
LOC: EMEROOARM 10:48 → ICNU 13:37 → 2ANU 05-23 10:45
PROVIDERS: ADMIT Pediatrics; ATTEND Pediatrics